=== PATIENT | female | born 1945 | race Caucasian/White ===

== ENCOUNTER 2020-12-02 07:49 | Outpatient (CLI) | payer MEDICARE, SELFPAY ==
--- NOTE | ~2020-12-02 | US_ITS ---
EXAMINATION: US venous doppler [facility] DATE: 12/02/2020 08:57 INDICATION: Lower limb pain and varicose veins TECHNIQUE: Grayscale ultrasound images without and with compression and Doppler ultrasound images of the bilateral lower extremity veins were obtained. COMPARISON: None. FINDINGS: The visualized portions of right common femoral vein, profunda (deep) femoral vein, femoral vein, pop liteal vein, posterior tibial veins, peroneal veins, gastrocnemius vein and greater saphenous vein ou tflow are patent. The visualized portions of left common femoral vein, profunda femoral vein, femoral vein, popliteal v ein, posterior tibial veins, peroneal veins, gastrocnemius vein and greater saphenous vein outflow ar e patent. In the anterolateral left thigh there is a nonspecific 2.2 x 0.8 x 2.5 cm hyperechoic lenti cular mass which appears centered within the superficial aspect of the musculature. No internal vascu lar flow evident within the mass on color Doppler. IMPRESSION: 1. No deep venous thrombosis in either lower limb. 2. Nonspecific 2.2 x 2.5 x 0.8 cm lenticular intramuscular mass at the anterolateral left thigh consi stent with neoplasm either benign such as lipoma, schwannoma or peripheral nerve sheath tumor or izabel gnant. Recommend pre and postcontrast MRI for further evaluation. Reviewed, dictated and finalized at location A. IATIVE NURSE IMPRESSION: 1. No deep venous thrombosis in either lower limb. 2. Nonspecific 2.2 x 2.5 x 0.8 cm lenticular intramuscular mass at the anterola teral left thigh consistent with neoplasm either benign such as lipoma, schwann basim or peripheral nerve sheath tumor or malignant. Recommend pre and postcontra st MRI for further evaluation.
== END 2020-12-02 07:50 | disposition home or self-care (01) ==
LOC: ANHIMG 07:56
DX: I83.813 Varicose veins of bilateral lower extremities with pain (principal); R22.42 Localized swelling, mass and lump, left lower limb
CPT/HCPCS: 93970

== ENCOUNTER → 2020-12-21 12:54 | Outpatient (CLI) | payer MEDICARE, SELFPAY ==
--- NOTE | ~2020-12-21 | MR_ITS ---
EXAMINATION: MR femur LT wo/w con DATE: 12/21/2020 14:22 INDICATION: Left thigh mass. TECHNIQUE: Magnetic resonance imaging (MRI) of the left thigh was performed without and with 12 mL Mu ltiHance intravenous contrast. Sequences included axial T1-weighted FSE, T1-weighted FS FSE, and T2-w eighted FS FSE, coronal and sagittal T1-weighted FSE and STIR FSE, and postcontrast axial, coronal, a nd sagittal T1-weighted FS FSE. COMPARISON: None. FINDINGS: Bone alignment is normal. No fracture. There is a 1.7 x 0.6 x 0.6 cm intramuscular lipoma i n the anterior distal thigh. There is a skin marker overlying this area. IMPRESSION: 1. 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 Reviewed, dictated and finalized at location A. K DRIVER FLATBED
[2020-12-21 13:32] LABS: Estimated Glomerular Filt Rate > 60
== END ==
PROVIDERS: Visit Provider Urology
DX: R22.42 Localized swelling, mass and lump, left lower limb (principal)
CPT/HCPCS: 73720; A9577

== ENCOUNTER 2021-02-14 10:14 | Outpatient (CLI) | payer MEDICARE, SELFPAY ==
--- NOTE | ~2021-02-14 | US_ITS ---
EXAMINATION: US venous doppler LE EXAM DATE: 02/14/2021 11:38 INDICATION: Varicose veins. TECHNIQUE: Multiple grayscale, color flow and Doppler images of the lower extremity venous systems bi laterally were obtained and reviewed. Saphenous venous mapping. The exam was reviewed on 02/14/2021. Co mparison is made to prior examination from 12/02/2020. FINDINGS: Right side: The right common femoral, femoral and profunda veins demonstrate normal color flow, respi ratory variation, augmentation and compressibility. Compressibility, color flow confirmed within the right popliteal, posterior tibial, peroneal, and greater saphenous veins. Right Standing Venous Mapping: reflux seconds duration; vein size. Greater saphenous origin: 1 seconds; 5 mm. Greater saphenous mid thigh:------ 1 seconds; 4 mm. Greater saphenous below knee:--- 5 seconds; 4 mm. Lesser saphenous proximally:------ 0 seconds; 3 mm. Lesser saphenous distally: 0 seconds; 2 mm. Left side: The left common femoral, femoral and profunda veins demonstrate normal color flow, respira tory variation, augmentation and compressibility. Compressibility, color flow confirmed within the l eft popliteal, posterior tibial, peroneal, and greater saphenous veins. Left Standing Venous Mapping: reflux seconds duration; vein size. Greater saphenous origin: 0 seconds; 5 mm. Greater saphenous mid thigh:------ 1 seconds; 3 mm. Greater saphenous below knee:--- 0 seconds; 3 mm. Lesser saphenous proximally:------ 3 seconds; 4 mm. Lesser saphenous distally: 0 seconds; 2 mm. IMPRESSION: Bilateral lower extremity venous reflux, vessel diameters as above. Reviewed, dictated and finalized at location B. IMPRESSION: Bilateral lower extremity venous reflux, vessel diameters as above .
== END 2021-02-14 10:15 | disposition home or self-care (01) ==
PROVIDERS: PCP Internal Medicine
DX: I83.813 Varicose veins of bilateral lower extremities with pain (principal)
CPT/HCPCS: 93970

== ENCOUNTER 2021-05-22 09:25 | Emergency (ER) | payer MEDICARE, SELFPAY ==
[2021-05-22 09:41] VITALS: BP 127/73; PULSE 118; RESP 18; TEMP 36.9; O2SAT 99
--- NOTE | 2021-05-22 09:46 | ED.ANIMALBIT ---
HPI - Animal Bite General Chief Complaint: Animal Bite Stated Complaint: Dog Bite Time Seen by Provider: 05/22/21 09:46 Source: patient and RN notes reviewed Mode of arrival: ambulatory Limitations: no limitations History of Present Illness HPI narrative: 75 yo female presents to the [facility] with concerns over swelling and inflammation to the left mid forearm. Patient states that on Saturday she was bit by her dog. States that she then had a televisit with her primary care provider at [facility] and was prescribed Augmentin. States that she is concerned because she only received 5 days of the antibiotic. States that she is having cataract surgery this week. Still having discomfort bruising and swelling to the area. States that she received her tetanus vaccine over the weekend at a pharmacy. Patient reports that she dropped pills as her dog was eating and went to pick them up and her dog bit her. Dog is up-to-date on vaccines. Related Data Home Medications Medication Instructions Recorded Confirmed alprazolam 0.5 mg tablet 0.5 mg PO TID 11/24/19 05/22/21 escitalopram oxalate 10 mg tablet 20 mg PO DAILY tablet 05/17/20 05/22/21 cholecalciferol (vitamin D3) 25 75 mcg PO DAILY cap 04/26/21 05/22/21 mcg (1,000 unit) capsule horse chestnut 300 mg capsule 300 mg PO DAILY 04/26/21 05/22/21 multivitamin 1 tablet PO DAILY 04/26/21 05/22/21 vitamins A,C,I-zoyc-rnehan 7,160 2 tablet PO BID tablet 04/26/21 05/22/21 unit-113 mg-100 unit tablet Allergies Allergy/AdvReac Type Severity Reaction Status Date / Time No Known Drug Allergies Allergy Other Verified 05/22/21 09:57 Review of Systems Review of Systems: All systems reviewed & are unremarkable except as noted in HPI and below Constitutional: Constitutional: Reports no additional constitutional complaints, Denies chills and Denies fever(s) Eyes: Eyes: Reports no additional eye complaints Cardiovascular: Cardiovascular: Reports no additional cardiovascular complaints Respiratory: Respiratory: Reports no additional respiratory complaints Musculoskeletal: Musculoskeletal: Reports no additional musculoskeletal complaints Integumentary/Breasts: Skin/Breast: Reports as per HPI, Denies pruritus, Denies erythema and Denies rash Comments: 2 puncture wounds to the left dorsal forearm Neurologic: Reports system reviewed and no additional complaints, except as documented, Denies headache(s), Denies focal weakness, Denies numbness and Denies weakness Psychiatric: Psychiatric: Reports no additional psychiatric complaints Allergic/Immunologic: Allergic/Immunologic: Reports no additional allergic/immunologic complaints [facility] Past Medical History Medical History (Updated 05/22/21 @ 10:03 by Isabela Mijares) Anxiety Osteopenia Thyroid disease Surgical History Surgical History H/O oophorectomy Hx of tonsillectomy Family History Family History Mother Family history of osteoporosis Family history of arthritis Family history of pancreatic cancer Sibling Hypertension Social History Social History Smoking status: Never smoker Second hand tobacco smoke exposure: No Alcohol intake: current 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 There is no relevant family history pertinent to the patient complaint. Exam Const: General: healthy appearing, no acute distress and alert Nutritional Appearance: well nourished Orientation/consciousness: patient oriented x3 Limitations: no limitations HENMT: Head: normal to inspection Eyes: Pupils: Equal, round and reactive pupils present Neck: Neck: normal visual inspection, no lymphadenopathy and no meningeal signs Chest: Kassi
== END 2021-05-22 10:06 | disposition home or self-care (01) ==
PROVIDERS: Emergency Provider Nurse Practitioner
DX: S51.832A Puncture wound without foreign body of left forearm, initial encounter (principal); W54.8XXA Other contact with dog, initial encounter; F41.9 Anxiety disorder, unspecified; M81.0 Age-related osteoporosis without current pathological fracture; E03.9 Hypothyroidism, unspecified
CPT/HCPCS: 99213; G0463

== ENCOUNTER 2022-12-26 09:00 | Outpatient (RCR) | payer MEDICARE, SELFPAY ==
--- NOTE | 2022-12-19 13:23 | STOPEVAL1 ---
Assessment and note entered by Arina Ruano, SYRUP MIXER HELPER Evaluation Information Assessment Status Evaluation Diagnosis Dysphonia Onset Approximately May 2022 ( 8 months ) Subjective Information The patient reports she has been diagnosed with Parkinson's disease. She stated that prior to that she had been working with someone on her stress and anxiety. She then went into a long detailed story about her cataract and eye issues, then explained about her varicose veins, and then something about how her hands contract, calling it something that starts with a 'd'. Therapist asked her twice about why she is here. She stated that she feels she talks fine but that occasionally, she feels she stutters, has a soft voice, and is occasionally drooling. After session, sister, who brought patient to session, reported that there have been occasions when patient speaks so softly that they cannot hear or understand her. She reported that on one occasion, sister asked patient to offer her food order at a drive-through (from the passenger side of the car), and patient responded with an abnormally soft voice, just above a whisper, although patient usually speaks at a more [id number] loudness. She also reported concerns with patient's swallowing, that she noticed that patient occasionally reports pills hanging up in the throat. Reported Pain Level Pain Score 0: Self Report Assessment ST Clinical Summary VOICE EVALUATION This patient was seen for a Voice Evaluation at the request of her physician. Patient reports she has recently been diagnosed with Parkinson's disease and reports a history of anxiety and decreased hearing acuity. She also reported having cataract surgery two years ago and blames that and COVID for her anxiety and the additional symptoms of Parkinson's disease. Today she reports that people do occasionally have difficulty hearing her when she speaks so she is aware of her decreased loudness, but she also reports she feels she stutters at times. Results of this voice evaluation find patient's overall speaking lo
--- NOTE | 2022-12-26 10:21 | OTOPEVAL1 ---
Assessment and note entered by Steven Benitez, ALETHA/Hallie, CHT Evaluation Information Assessment Status Evaluation Diagnosis Parkinson's Disease Subjective Information Patient was diagnosed with PD Oct 2022. She reports having symptoms for a while but just recently diagnosed. She was then prescribed carbidopa/levodopa 3 times/day. She states she noticed immediate improvement when she started the medications. She reports difficulties with writing - her sister has been having to do her bills; with being able to cut an apple or meat; picking up pills. Reports getting in and out of a car has also become more difficult. States she doesn't go grocery shopping by herself anymore because she gets anxious that she's going to drop something and this makes her tremor worse. Reported Pain Level Pain Score 0: Self Report Assessment OT Clinical Summary Laina Ruiz) presents to outpatient OT with dx of Parkinson's Disease. Skilled therapy indicated secondary to a decline in ADL function due to bradykinesias and hypokinesia. She will benefit from skilled treatment focused on targeting neuroplasticity via amplitude-based interventions to facilitate recalibration of kinesthetic and proprioceptive movement. Plan of Care Interventions Therapeutic Exercise,Neuro Re-education OT Services Indicated Yes Treatment Frequency and 2-3x/week for 4 weeks Duration These treatments will address the objective and functional deficits as defined above. The patient will be advanced safely and appropriately in order for the patient to progress towards his/her prior level of function. Additional exercises will be introduced and as well as a comprehensive home exercise program upon discharge, if needed, ?to ensure carryover of functional gains achieved in the clinic. This treatment plan has been reviewed and agreement upon by the patient.
--- NOTE | 2022-12-31 08:10 | PCSTNOTE ---
Cancelled this date as patient is wanting LSVT 4x weekly and this therapist is not certified for 4x weekly at this time.
--- NOTE | 2023-01-03 08:46 | OTOPDC ---
Assessment and note entered by Steven Benitez, ALETHA/Hallie, CHT Evaluation Information Assessment Status Discharge Assessment OT Clinical Summary Patient evaluated for OT on 12/25/22 and was recommended to be seen 2x/week for therapy. Patient's sister is looking for traditional LSVT treatment for 4 days/week and our clinic unfortunately does not provide the traditional LSVT protocol as we are not certified. The patient and her sister were provided with other clinics that have certified therapists to provide the protocol to better fit her needs. Discharging today. Plan of Care OT Services Indicated No
--- NOTE | 2023-01-07 15:06 | STOPDC ---
Assessment and note entered by Arina Ruano BUSINESS DEVELOPMENT RECRUITER Evaluation Information Assessment Status Discharge - Pt Not Presen Assessment ST Clinical Summary DISCHARGE SUMMARY Patient seen for Speech Therapy evaluation only on 12/19/22 for voice treatment following diagnosis of Parkinson's disease. Patient requested LSVT [facility] for four days weekly. Because we do not have certified clinicians for LSVT at this time, patient chose to find another clinic which could provide this program. Discharged January 03 at patient request. Plan of Care ST Services Indicated No
== END 2023-03-04 08:46 | disposition home or self-care (01) ==
LOC: ANHOT 09:00
PROVIDERS: Visit Provider Nurse Practitioner Gerontology
DX: G20 Parkinson's disease (principal); R49.0 Dysphonia
CPT/HCPCS: 92524; 97110; 97166

== ENCOUNTER 2023-07-18 13:14 | Emergency (ER) | payer MEDICARE, SELFPAY ==
[2023-07-18 13:24] VITALS: BP 119/70; PULSE 94; RESP 18; TEMP 36.9; O2SAT 99
[2023-07-18 13:34] VITALS: BP 119/70; PULSE 94; RESP 18; TEMP 36.9; O2SAT 99
--- NOTE | 2023-07-18 13:36 | ED.EXTPRO ---
HPI - Extremity Problem General Chief complaint: Extremity Problem,Nontraumatic Stated complaint: Left Arm Irritation History of Present Illness HPI Narrative: Pt is a 77 y/o female, PMHx of Parkinson's, presents to with right anterior biceps region of ecchymosis that she noticed while brushing her teeth today. she initially had no recollection of injury but now notes she recalls walking around the corner in her home to answer the phone, when she bumped into the wall abruptly. She did not lift her shirt to examine and has not looked at her arm until today. This injury occurred last week. She has no underlying bony tenderness but notes a knot at the center of the bruise and this caused her concern. She has no hx of DVT, PE or family history of clotting disorders. She does not smoke. She has no other complaints. Related Data Home Medications Medication Instructions Recorded Confirmed escitalopram oxalate 10 mg tablet 20 mg PO DAILY 05/17/20 07/18/23 (Lexapro) vitamins A,C,S-jxqu-ckfsra 2,148 2 tablet PO BID 04/26/21 07/18/23 mcg-113 mg-45 mg-17.4 mg tablet (PreserVision AREDS) zinc sulfate 50 mg zinc (220 mg) 50 mg PO DAILY 08/30/22 07/18/23 capsule (Orazinc) alprazolam 0.5 mg tablet (Xanax) 0.5 mg PO QPM PRN Anxiety 03/12/23 07/18/23 carbidopa 25 mg-levodopa 100 mg 1 tablet PO DAILY 03/12/23 07/18/23 tablet (Sinemet) cholecalciferol (vitamin D3) 25 50 mcg PO DAILY 03/12/23 07/18/23 mcg (1,000 unit) capsule memantine 10 mg tablet 10 mg PO BID 03/12/23 07/18/23 omeprazole 20 mg capsule,delayed 40 mg PO DAILY 03/12/23 07/18/23 release sertraline 50 mg tablet 50 mg PO DAILY 07/18/23 07/18/23 Allergies Allergy/AdvReac Type Severity Reaction Status Date / Time No Known Drug Allergies Allergy Other Verified 07/18/23 13:31 Review of Systems Integumentary/Breasts: Skin/Breast: Reports as per [facility] Past Medical History Medical History Anxiety B12 deficiency Dietary counseling and surveillance Hypothyroidism (acquired) Iron deficiency Osteopenia Osteoporosis Parkinsons disease Thyroid disease Vitamin D deficiency Surgical History Surgical History H/O oophorectomy Hx of tonsillectomy Family History Family History Mother Family history of osteoporosis Family history of arthritis Family history of pancreatic cancer Sibling Hypertension Social History Social History Smoking status: Never smoker Second hand tobacco smoke exposure: No Alcohol intake: former Substance use: never Living arrangements: alone Occupation/Education: retired 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 Exam Const: General: healthy appearing, no acute distress and alert Nutritional Appearance: well nourished Orientation/consciousness: patient oriented x3 Limitations: no limitations HENMT: Head: normal to inspection Ears: TM's normal bilaterally Face and sinus: normal facial exam Mouth: Yes Normal oral and palatal mucosa present Teeth and gingiva: dentition normal Throat: posterior oropharynx normal and uvula midline Eyes: Conjunctivae: conjunctivae normal Pupils: Equal, round and reactive pupils present EOM: EOMs intact bilaterally Neck: Neck: normal visual inspection, no lymphadenopathy and no meningeal signs Resp: Effort & Inspection: normal respiratory effort Auscultation: clear to auscultation bilaterally Cardio: Rate: regular rate Rhythm: regular rhythm Skin: General skin exam: normal color Rashes: no rashes Other: Pt has a 4 cm by 5 cm area of ecchymosis to the right anterior biceps region that is purple brown at center and yellow at the edges of the margin of ecchymosis. There is a 1 cm round palpable firm hematoma at the
== END 2023-07-18 13:46 | disposition home or self-care (01) ==
PROVIDERS: Emergency Provider Nurse Practitioner Family; PCP Urology
DX: S40.022A Contusion of left upper arm, initial encounter (principal); T14.90XA Injury, unspecified, initial encounter; F41.9 Anxiety disorder, unspecified; E03.9 Hypothyroidism, unspecified; G20.A1 Parkinson's disease without dyskinesia, without mention of fluctuations; E55.9 Vitamin D deficiency, unspecified
CPT/HCPCS: 99211; G0463

== ENCOUNTER 2023-10-01 12:04 | Emergency (ER) | payer MEDICARE, SELFPAY ==
[2023-10-01 12:14] VITALS: BP 147/78; PULSE 94; RESP 16; TEMP 37.3; O2SAT 100
[2023-10-01 12:17] VITALS: BP 147/78; PULSE 94; RESP 16; TEMP 37.3; O2SAT 100
--- NOTE | 2023-10-01 12:24 | ED.URI ---
HPI - URI/Sore Throat General Chief Complaint: Upper Respiratory Infection Stated Complaint: Chills/Sinus Time Seen by Provider: 10/01/23 12:24 Source: patient and RN notes reviewed Mode of arrival: ambulatory Limitations: no limitations History of Present Illness HPI Narrative: 78-year-old female with history of Parkinson's disease presented for complaint of cough, nasal congestion drainage, nausea, and fever/ chills. Onset 2 days. It states she was exposed to COVID. She denies shortness of breath, wheezing, vomiting, diarrhea. She is not taking anything for symptoms. MD elicited complaint: cough Related Data Home Medications Medication Instructions Recorded Confirmed escitalopram oxalate 10 mg tablet 20 mg PO DAILY 05/17/20 10/01/23 (Lexapro) vitamins A,C,N-uphy-skmdku 2,148 2 tablet PO BID 04/26/21 10/01/23 mcg-113 mg-45 mg-17.4 mg tablet (PreserVision AREDS) zinc sulfate 50 mg zinc (220 mg) 50 mg PO DAILY 08/30/22 10/01/23 capsule (Orazinc) carbidopa 25 mg-levodopa 100 mg 1 tablet PO DAILY 03/12/23 10/01/23 tablet (Sinemet) cholecalciferol (vitamin D3) 25 50 mcg PO DAILY 03/12/23 10/01/23 mcg (1,000 unit) capsule memantine 10 mg tablet 10 mg PO BID 03/12/23 10/01/23 omeprazole 20 mg capsule,delayed 40 mg PO DAILY 03/12/23 10/01/23 release donepezil 10 mg tablet 10 mg DIRECTED 10/01/23 10/01/23 donepezil 5 mg tablet 5 mg DIRECTED 10/01/23 10/01/23 sertraline 50 mg tablet 50 mg DIRECTED 10/01/23 10/01/23 Allergies Allergy/AdvReac Type Severity Reaction Status Date / Time No Known Drug Allergies Allergy Other Verified 09/10/23 11:02 Review of Systems Review of Systems: CONSTITUTIONAL: Endorses malaise, chills, sweats, fever EYES: Denies visual changes, redness, or discharge ENT: Reports rhinorrhea, congestion, denies sinus pain, otalgia, sore throat CARDIOVASCULAR: Denies chest pain, palpitations, edema RESPIRATORY: Reports cough, post nasal drainage. Denies dyspnea GASTROINTESTINAL: Denies abdominal pain, nausea, vomiting, diarrhea SKIN: Denies rash or itching MUSCULOSKELETAL: Endorses myalgia NEUROLOGIC: Denies headache PMFSH Past Medical History Medical History Anxiety B12 deficiency Dietary counseling and surveillance Hypothyroidism (acquired) Iron deficiency Osteopenia Osteoporosis Parkinsons disease Thyroid disease Vitamin D deficiency Surgical History Surgical History H/O oophorectomy Hx of tonsillectomy Family History Family History Mother Family history of osteoporosis Family history of arthritis Family history of pancreatic cancer Sibling Hypertension Social History Social History Smoking status: Never smoker Second hand tobacco smoke exposure: No Alcohol intake: former Substance use: never Living arrangements: alone Occupation/Education: retired 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 HEAD: Normocephalic EYES: PERRLA, conjunctivae clear ENT: Mucous membranes moist. TMs pearly knutson with dull light reflex bilaterally; no tragal tenderness. Oropharynx not erythematous without lesions or exudate, no drooling, no hoarseness, no trismus, uvula midline. NECK: Supple. No lymphadenopathy CHEST: Clear to auscultation, breath sounds equal. No wheezing, rhonchi, rales, or stridor. No respiratory distress, speaks in full sentences. HEART: Regular rate and rhythm. No murmur heard. SKIN: Warm, dry, no rash. NEURO: Alert and oriented x3. PSYCH: Normal mood and affect Course Course Emergency Course: Patient is aware of diagnosis, understands and agrees to treatment plan. Anticipatory guidance given. Patient agre
== END 2023-10-01 12:45 | disposition home or self-care (01) ==
PROVIDERS: Emergency Provider Nurse Practitioner Family
DX: U07.1 COVID-19 (principal); E03.9 Hypothyroidism, unspecified; G20.A1 Parkinson's disease without dyskinesia, without mention of fluctuations; Z79.899 Other long term (current) drug therapy
CPT/HCPCS: 87426; 87804; 99213; C9803; G0463

== ENCOUNTER 2025-10-08 05:25 | Emergency (ER) | payer MEDICARE, SELFPAY ==
--- NOTE | ~2025-10-08 | XR_ITS ---
Examination: XR clavicle LT Clinical History: pain after fall Comparison: None Technique: 2 views left clavicle Findings/impression: 1. No fracture. Reviewed, dictated and finalized at location R. STANT CASINO SHIFT MANAGER
--- NOTE | ~2025-10-08 | XR_ITS ---
Examination: XR shoulder RT min 2V, XR humerus RT, XR elbow RT 2V Clinical History: fall, pain? Comparison: None Technique: 3 views right shoulder, 2 views right humerus, 2 views right elbow Findings/impression: Right shoulder: 1. No fracture or dislocation right shoulder. Right humerus: 1. No fracture. Right elbow: 1. No fracture or dislocation right elbow on 2 view series. Reviewed, dictated and finalized at location R. ORK ADMIN
--- NOTE | ~2025-10-08 | CT_ITS ---
CT HEAD NON-CONTRAST CT C-SPINE Clinical History: fall Comparison: None Technique: Unenhanced axial images skull base to vertex. Coronal, sagittal reformats. Axial images thoracic inlet to skull base. Sagittal and coronal reformats. CT images acquired with automatic exposure control for dose reduction DLP: 1362 mGy-cm Findings: Head: Mild global atrophy. Chronic white matter microvascular ischemic changes. Sulci, ventricles: Unremarkable. No intracerebral hemorrhage. No evidence acute territorial infarct. No mass effect, midline shift, intra-/extra-axial fluid collection. Bony calvarium intact. Visualized paranasal sinuses: Clear. Mastoid air cells: Clear. C-spine: No acute fracture or listhesis. Levocurvature. Mild degenerative changes. Disc spaces maintained. Prevertebral soft tissues within normal limits. Visualized lung apices: Clear. Visualized thyroid: Unremarkable. No enlarged cervical nodes. IMPRESSION: HEAD: 1. No acute intracranial findings. C-SPINE: 1. No acute fracture. Reviewed, dictated and finalized at location R. LIFTER IMPRESSION: HEAD: 1. No acute intracranial findings. C-SPINE: 1. No acute fracture.
[2025-10-08 05:27] VITALS: BP 156/94; PULSE 111; RESP 17; TEMP 36.7; O2SAT 100
--- NOTE | 2025-10-08 05:54 | ED.FALL ---
HPI - Fall General Chief Complaint: Fall Stated Complaint: fall Time Seen by Provider: 10/08/25 05:47 Source: patient, family and RN notes reviewed Mode of arrival: EMS Limitations: dementia History of Present Illness HPI Narrative: Patient presents after an unwitnessed ground level fall in which she presumably struck her head. She resides at [facility] and it was reported that she is not on anticoagulation. She has a history of Parkinson's as well as dementia and is alert oriented x1 which is her baseline. Patient had been complaining of upper neck pain and EMS applied a C-spine collar. She has also been complaining of right arm pain although exact location unclear. History is limited due to patient's dementia but she cannot fully cooperate with answering questions. She cannot indicate where it hurts on her arm. Related Data Home Medications ?Medication ?Instructions ?Recorded ?Confirmed ?Last Taken ?Type escitalopram oxalate 10 mg tablet 20 mg PO DAILY 05/17/20 05/06/24 Unknown History (Lexapro) vitamins A,C,W-mmhr-rkgump 2,148 2 tablet PO BID 04/26/21 05/06/24 Unknown History mcg-113 mg-45 mg-17.4 mg tablet (PreserVision AREDS) zinc sulfate 50 mg zinc (220 mg) 50 mg PO DAILY 08/30/22 05/06/24 Unknown History capsule (Orazinc) carbidopa 25 mg-levodopa 100 mg 1 tablet PO DAILY 03/12/23 05/06/24 Unknown History tablet (Sinemet) cholecalciferol (vitamin D3) 25 50 mcg PO DAILY 03/12/23 05/06/24 Unknown History mcg (1,000 unit) capsule memantine 10 mg tablet 10 mg PO BID 03/12/23 05/06/24 Unknown History donepezil 10 mg tablet 10 mg DIRECTED 10/01/23 05/06/24 Unknown History donepezil 5 mg tablet 5 mg DIRECTED 10/01/23 05/06/24 Unknown History duloxetine 20 mg capsule,delayed mg PO DAILY 05/06/24 05/06/24 Unknown History release minoxidil 2.5 mg tablet mg PO DAILY 05/06/24 05/06/24 Unknown History omeprazole 40 mg capsule,delayed mg PO DAILY 05/06/24 05/06/24 Unknown History release oxybutynin chloride 5 mg mg PO 05/06/24 05/06/24 Unknown History tablet,extended release 24 hr Allergies Allergy/AdvReac Type Severity Reaction Status Date / Time No Known Drug Allergies Allergy Other Verified 10/08/25 05:42 [facility] Past Medical History Medical History Dementia Parkinsons disease Vitamin D deficiency Iron deficiency Hypothyroidism (acquired) Dietary counseling and surveillance B12 deficiency Osteoporosis Thyroid disease Osteopenia Anxiety Surgical History Surgical History H/O oophorectomy Hx of tonsillectomy Family History Family History Mother Family history of osteoporosis Family history of arthritis Family history of pancreatic cancer Sibling Hypertension Social History Social History Social History: Smoking status: Never smoker Second hand tobacco smoke exposure: No Alcohol intake: former Substance use: never Living arrangements: alone Additional living arrangements comments: [facility] Living Occupation/Education: retired 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 HEAD: Normocephalic, atraumatic. EYES: Non injected, non icteric ENT: Nares clear, no rhinorrhea or epistaxis. Gross auditory acuity intact. NECK: C collar in place. No TTP of the areas of the neck that are able to be palpated under this. No TTP of left clavicle. CHEST: Speaking in full sentences. No respiratory distress. HEART: Tachycardic rate and rhythm. . ABDOMEN: Soft, nondistended. No rigidity or guarding. Not peritoneal EXTREMITIES: No upper extremity edema. Initially holds right arm bend at the elbow across her chest. No TTP of wrist , able to demonstrate flexion and extension. No TTP of right elbow and does demonstrate some flexion/extension. No TTP of right shoulder though does not show ROM. No obvious bony deformity. SKIN: Warm, dry, no rash. NEURO: No focal deficits. Alert but not oriented.Intermittently Following commands. Normal speech without aphasia or dysarthria. PSYCH: Congruent mood and affect. Appears anxious and at times mildly agitated but calm. Course Vital Signs Vital signs: Vital Signs Temperature 98.0 F 10/08/25 05:27 Pulse Rate 111 H 10/08/25 05:27 Respiratory Rate 17 10/08/25 05:27 Blood Pressure 156/94 H 10/08/25 05:27 Pulse Oximetry 100 10/08/25 05:27 Oxygen Delivery Room Air 10/08/25 05:27 Temperature 98.0 F 10/08/25 05:27 Pulse Rate 87 10/08/25 08:49 Respiratory Rate 14 10/08/25 08:49 Blood Pressure 111/65 10/08/25 08:49 Pulse Oximetry 97 10/08/25 08:49 Oxygen Delivery Room Air 10/08/25 05:27 MDM MDM Narrative Medical decision making narrative: Patient presents after a ground level fall that was unwitnessed in which she presumably struck head. Patient had been complaining of neck pain as well as right arm pain. History of Parkinson's and dementia which limits her ability to give a history a she is alert oriented x1 at baseline which is she presents currently. In the emergency department she is afebrile with vital signs notable for hypertension as well as mild tachycardia. Per review of EMR medication list, patient is not on anticoagulation. Initially CT brain, C-spine, and imaging of the right upper extremity had been ordered. Upon reassessment, cervical collar is removed and patient has difficulty fully participating in physical exam to demonstrate full range of motion however she is able to show some rotational/rrgp-tj-[id number] movement of her neck as well as to a lesser degree has some flashes and extension. She has no tenderness to palpation of the cervical spine. She is complaining of pain of her left neck/at the clavicle. NO obvious deformity but will proceed with Xray of this as well. Discussed with the family the recommendation for offering PRN meds over the next several days as she might not be able to voice her needs/pain. They verifies understanding and reports that the [facility] facility where she resides does assist with medication administration. Vital signs have normalized. Stable for discharge. Advised follow up with PCP. Differential Diagnosis Differential Diagnosis: Fracture, dislocation, bony contusion, intracranial hemorrhage Imaging Data Radiologist's impression: ITS Impressions Cervical Spine CT 10/08/25 07:02 IMPRESSION: HEAD: 1. No acute intracranial findings. C-SPINE: 1. No acute fracture. Head CT 10/08/25 07:02 IMPRESSION: HEAD: 1. No acute intracranial findings. C-SPINE: 1. No acute fracture. CT head stat rad: Generalized cerebral volume loss and chronic, small-vessel ischemic changes in the white matter. No acute intracranial edema, hemorrhage or abnormal mass effect. No extra-axial collection. No fracture. CT C spine w/o contrast stat rad: No acute osseous pathology. Multilevel cervical spondylopathy. Impressions Cervical Spine CT 10/08/25 07:02 IMPRESSION: HEAD: 1. No acute intracranial findings. C-SPINE: 1. No acute fracture. Head CT 10/08/25 07:02 IMPRESSION: HEAD: 1. No acute intracranial findings. C-SPINE: 1. No acute fracture. Findings/impression: Right shoulder: 1. No fracture or dislocation right shoulder. Right humerus: 1. No fracture. Right elbow: 1. No fracture or dislocation right elbow on 2 view series. Findings/impression: 1. No fracture. Discharge Plan Discharge Clinical Impression: Fall, Neck pain, Other specified spondylopathies, cervical region, Arm pain, right, Pain of left clavicle Patient Disposition: NH Group Home/Asst Living Condition: Stable Instructions: Antibiotic Form, Cervical Strain (DC), Fall Prevention for Older Adults (ED), Arm Pain (ED), Acute Neck Pain (ED) Additional Instructions: As we discussed, no broken bones or bleeding in the brain. She will likely continue to be sore/achy over the next several days after the fall so offer medications as needed (PRN). Acetaminophen/Tylenol (maximum 3000 mg per day) is safe to take with NSAIDs (ibuprofen/Motrin) for pain relief. Follow-up with your primary care physician. Return to the emergency department with any new or worsening symptoms. Patient Language: German Prescriptions: New acetaminophen 650 mg tablet extended release 650 mg PO Q8H PRN (Reason: pain) Qty: 30 0RF ibuprofen 600 mg tablet 600 mg PO TID PRN (Reason: pain) Qty: 30 0RF No Action donepezil 5 mg tablet 5 mg DIRECTED donepezil 10 mg tablet 10 mg DIRECTED zinc sulfate [Orazinc] 50 mg zinc (220 mg) capsule 50 mg PO DAILY escitalopram oxalate [Lexapro] 10 mg tablet 20 mg PO DAILY PreserVision AREDS 7,160 unit- 113 mg-100 unit tablet 2 tablet PO BID Rx Instructions: administer with AM and PM meals cholecalciferol (vitamin D3) 25 mcg (1,000 unit) capsule 50 mcg PO DAILY carbidopa-levodopa [Sinemet] 25-100 mg tablet 1 tablet PO DAILY memantine 10 mg tablet 10 mg PO BID duloxetine 20 mg capsule,delayed release(DR/EC) PO DAILY omeprazole 40 mg capsule,delayed release(DR/EC) PO DAILY minoxidil 2.5 mg tablet PO DAILY oxybutynin chloride 5 mg tablet extended release 24hr PO levothyroxine [Synthroid] 75 mcg tablet See Rx Instructions .ROUTE .COMPLEX Qty: 78 0RF Dose Instruction: TAKE ONE TABLET BY MOUTH 6 DAYS A WEEK Rx Instructions: TAKE ONE TABLET BY MOUTH 6 DAYS A WEEK Follow-up/Referrals: Dr Elaina Gomes [Other] Referral Note: patient's listed PCP PHYSICIAN,EXECUTIVE PRODUCER PROMOS [Non-Staff, Internal Medicine] Stand Alone Forms: Fpc Discharge Time of Disposition: 07:53
[2025-10-08] MEDS: ACETAMINOPHEN 325 MG TABLET 650 MG PO (06:55)
[2025-10-08 07:40] VITALS: BP 130/82; PULSE 79; RESP 16; O2SAT 97
--- OUTSIDE RECORDS SUMMARY | 2025-10-08 07:53 | XMS_ITS | Encounter Summary ---
Author Organization [facility] Address [address] [place] [address] Care Team Providers Care Orbitread Operator Name Role Phone Elaina Gomes MD Primary Care Provid er Encounter Details Date Type Department Care Team (Late st Contact Info) Description 06/13/[address] 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
--- OUTSIDE RECORDS SUMMARY | 2025-10-08 07:53 | XMS_ITS | Encounter Summary ---
Author Organization [facility] Address [address] [place] [address] Care Team Providers Care Software Installation Engineer Name Role Phone Elaina Gomes MD Primary Care Provid er Encounter Details Date Type Department Care Team (Late st Contact Info) Description 09/24/2008 Outpatient Historical [facility] Jas Griffith MD [address] [place] [address] Palpitations Social History Tobacco Use Types Packs/Day Years Used Date Smoking Tobacco: Never Alcohol Use Standard Drinks/Week Comments No 0 (1 standard drink = 0.6 oz pur e alcohol) Comments No Sex and Gender Information Value Date Recorded Sex Assigned at Not on file 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 [address] [email or web address] Patient: Laina Christie MRN: Study ID: ADULT STRESS ECH Gender: F : 1945 Age: 63 years Race: 1 Room: Bed: Height: Study Date: September 24, 2008 Patient status: Outpatient Weight: Access. #: [id number] POC: Ordering: Robert Attending MD: Robert Admitting MD: Robert Study Conclusions: SUMMARY - Stress results : Duration of exercise was 46 min. Target heart rate was achieved. There was no chest pain during stress. - Baseline : Estimated left ventricular ejection fraction was in the range of 55 % to 65 %. - Echo image interpretation : There was no echocardiographic evidence for stress-induced ischemia. IMPRESSIONS - Normal study after maximal exercise without reproduction of symptoms. History and indications - Detection of coronary artery disease. HISTORY - The patient is a 63 year old female. - Other symptoms: palpitations. REST ECG - Normal baseline ECG. Treadmill exercise testing was performed, using the Alejo protocol. Stress and rest echocardiographic evaluation was performed from multiple acoustic windows for evaluation of ventricular function. Stress results Alejo protocol Baseline HR bpm: 96 SBP mmH DBP mmH Symptoms: -- ST change: -- Rhythm/conduct: -- Peak HR bpm: 160 SBP mmH DBP mmH Symptoms: dyspnea, fatigue ST change: none Rhythm/conduct: occasional PVC's STRESS TEST DATA - No medications or fluids given. STRESS RESULTS - Duration of exercise was 46 min. - The patient exercised to protocol stage 2. - Maximal heart rate during stress was 160 bpm ( 101 % of maximal predicted heart rate). - The heart rate response to stress was normal. - There was normal resting blood pressure with an appropriate response to stress. - The rate-pressure product for the peak heart rate and blood pressure was [address]7. - There was no chest pain during stress. - The stress test was terminated due to achievement of target heart rate, dyspnea, and fatigue. - Arrhythmia during stress: isolated premature ventricular beats and pairs of premature ventricular beats. Imaging data IMAGE PROPERTIES - The image quality was excellent. STRESS 2D ECHOCARDIOGRAPHIC RESULTS Baseline: - There was no diagnostic evidence for left ventricular regional wall motion abnormalities at baseline. - Left ventricular size was normal. - Overall left ventricular systolic function was normal. - Estimated left ventricular ejection fraction was in the range of 55 % to 65 %. Peak stress: - There was no diagnostic evidence for left ventricular regional wall motion abnormalities at peak stress. - There was an appropriate reduction in left ventricular size. - There was an appropriate augmentation in LV function. ECHO IMPRESSIONS - There was no echocardiographic evidence for stress-induced ischemia. Prepared and Electronically Authenticated Gunnar Harman MD Confirmed September 24, 2008 11:17:08 Procedure Note Provider, Historical - 09/24/2008 [facility] [address] [place] [address] [email or web address] Patient: Laina Christie MRN: Study ID: ADULT STRESS ECH Gender: F : 1945 Age: 63 years Race: 1 Room: Bed: Height: Study Date: September 24, 2008 Patient status: Outpatient Weight: Access. #: [id number] POC: Ordering: Robert Attending MD: Robert Admitting MD: Robert Study Conclusions: SUMMARY - Stress results : Duration of exercise was 46 min. Target heart ratewas achieved. There was no chest pain during stress. - Baseline : Estimated left ventricular ejection fraction was in therange of 55 % to 65 %. - Echo image interpretation : There was no echocardiographic evidencefor stress-induced ischemia. IMPRESSIONS - Normal study after maximal exercise without reproduction of symptoms. History and indications - Detection of coronary artery disease. HISTORY - The patient is a 63 year old female. - Other symptoms: palpitations. REST ECG - Normal baseline ECG. Treadmill exercise testing was performed, using the Alejo protocol.Stress and rest echocardiographic evaluation was performed from multipleacoustic windows for evaluation of ventricular function. Stress results Alejo protocol Baseline HR bpm: 96 SBP mmH DBP mmH Symptoms: -- ST change: -- Rhythm/conduct: -- Peak HR bpm: 160 SBP mmH DBP mmH Symptoms: dyspnea, fatigue ST change: none Rhythm/conduct: occasional PVC's STRESS TEST DATA - No medications or fluids given. STRESS RESULTS - Duration of exercise was 46 min. - The patient exercised to protocol stage 2. - Maximal heart rate during stress was 160 bpm ( 101 % of maximal predicted heart rate). - The heart rate response to stress was normal. - There was normal resting blood pressure with an appropriate responseto stress. - The rate-pressure product for the peak heart rate and blood pressurewas 87225. - There was no chest pain during stress. - The stress test was terminated due to achievement of target heartrate, dyspnea, and fatigue. - Arrhythmia during stress: isolated premature ventricular beats andpairs of premature ventricular beats. Imaging data IMAGE PROPERTIES - The image quality was excellent. STRESS 2D ECHOCARDIOGRAPHIC RESULTS Baseline: - There was no diagnostic evidence for left ventricular regional wall motion abnormalities at baseline. - Left ventricular size was normal. - Overall left ventricular systolic function was normal. - Estimated left ventricular ejection fraction was in the range of 55 %to 65 %. Peak stress: - There was no diagnostic evidence for left ventricular regional wall motion abnormalities at peak stress. - There was an appropriate reduction in left ventricular size. - There was an appropriate augmentation in LV function. ECHO IMPRESSIONS - There was no echocardiographic evidence for stress-induced ischemia. Prepared and Electronically Authenticated Gunnar Harman MD Confirmed September 24, 2008 11:17:08 us Jas Griffith MD US ORDERABLES Final Result Performing Organization Address City/State/[facility] Co de Phone Number INTERFACE SYSTEM Refer to clinic/hospital department documented in this encounter Visit Diagnoses Diagnosis Palpitations documented in this encounter Additional Health Concerns Infection Onset Date Last Indicated Resolved Time R/O COVID-19 07/31/2024 07/31/2024 07/31/2024 4:18 PM CDT documented as of this encounter Care Teams Software Installation Engineer Relationship Specialty Start Date End Date Elaina Gomes MD PCP - General Internal Medicine 06/25/14 documented as of this encounter
--- OUTSIDE RECORDS SUMMARY | 2025-10-08 07:53 | XMS_ITS | Clinical Summary ---
Author Organization [facility] Address [address] [place] [address] Care Team Providers Care Fish Peddler Name Role Phone Elaina Gomes MD Primary Care Provid er Manuel Hyman MD Unavailable [phone] Allergies No known active allergies Medications escitalopram (LEXAPRO) 20 mg tablet 8 Active SYNTHROID 50 mcg tablet TK 1 T PO 5 DAYS A WEEK AND THEN 1 AND 1/2 TS FOR 2 DAYS A WEEK 5 8 Active spironolactone (ALDACTONE) 100 mg tablet 1 8 Active oxybutynin (DITROPAN) 5 mg tablet 8 Active ALPRAZolam (XANAX) 0.5 mg tablet Active ferrous sulfate 325 mg (65 mg of elemental iron) tablet 7 Active aspirin 81 mg enteric coated tablet Take 1 tablet (81 mg total) by mouth daily Active cholecalciferol (VITAMIN D-3) 2000 unit tablet Act oziel horse chestnut 300 mg capsule Take 300 mg by mouth Active ketorolac (ACULAR) 0.5 % ophthalmic solution 1 Active ofloxacin (OCUFLOX) 0.3 % ophthalmic solution 1 Active prednisoLONE acetate (PRED FORTE) 1 % ophthalmic suspension 1 Active atorvastatin (LIPITOR) 40 mg tablet Take 1 tablet (40 mg total) by mouth daily Active DULoxetine DR (CYMBALTA) 30 mg capsule 2 Active omeprazole (PriLOSEC) 20 mg capsule Take 1 capsule (20 mg total) by mouth daily as needed Active zinc gluconate 50 mg tablet Take 1 tablet (50 mg total) by mouth daily Active minoxidiL (LONITEN) 2.5 mg tablet 4 Active vitamins A,C,Y-xwzl-trliv r (PreserVision AREDS) 4,296 mcg-226 mg-90 mg capsule as directed Orally Active DULoxetine DR (CYMBALTA) 20 mg capsule 4 Active Synthroid 75 mcg tablet 4 Active donepeziL (ARICEPT) 10 mg tabletIndication s:Dementia without behavioral disturbance (HCC) Take 1 tablet (10 mg total) by mouth nightly 30 tablet 5 4 Active Additional Information Patient not taking.Reported on 06/02/2025 cephalexin (KEFLEX) 500 mg capsule 4 Active oxyBUTYnin XL (DITROPAN-XL) 5 mg 24 hr tablet 4 Active carbidopa-levodo pa (SINEMET) 25-100 mg per tabletIndication s:Parkinsonism Three times daily at 8am, 12 noon and 5pm 90 tablet 5 5 Active entacapone (COMTAN) 200 mg tabletIndication s:Idiopathic Parkinsonism Take 1 tablet (200 mg total) by mouth 3 (three) times a day Please give with each dose of carbidopa/levod opa 90 tablet 5 5 11/29/19 26 Active QUEtiapine (SEROquel) 25 mg tablet Take 0.5 tablets (12.5 mg total) by mouth 2 (two) times a day as needed (agitation) 30 tablet 5 5 Active Nuplazid 34 mg TAKE 1 CAPSULE BY MOUTH EVERY DAY 30 capsule 5 5 Active memantine (NAMENDA) 10 mg tablet TAKE ONE TABLET BY MOUTH TWICE DAILY 60 tablet 1 5 Active Active Problems Problem Noted Date Diagnosed Date Abnormal involuntary movement 06/04/2025 Neuropathy 03/16/2024 Chronic constipation 05/28/2023 Dementia without behavioral disturbance 05/22/20 23 Parkinson's disease 11/14/2022 Memory disturbance 11/14/2022 Hyper reflexia 11/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 She states that the reticular veins to the right foot and ankle have worsened over the past year. Denies any worsening overall of her symptoms. She is not utilized her compression stockings as they have been really difficult to get on because the compression gradient is difficult for her to put the stockings on. Will place Tubigrip to the legs today and will give a prescription for a lesser compression gradient stocking to help with her ability to put the stockings on. Plan: Return as needed. Assessment & Plan (05/05/2021 11:36 AM CDT): Impression: Patient with mild varicosities of both lower extremities with associated edema and occasional tenderness. She also has scattered reticular and spider veins. Patient has history of sclerotherapy in the past. She is not utilize any type of compression therapy on a consistent basis. Plan: Recommended further evaluation with lower extremity venous reflux studies and follow-up in 4-6 weeks for re- evaluation and discussion of test results.Recommend ongoing formal compression regimen consisting of medical grade knee-high compression stockings 20 30 mm mercury in strength with leg elevation p.r.n.. Venous reflux 03/06/2021 Lipoma of thigh 01/19/2021 Difficulty swallowing pills 10/09/2016 Pure hypercholesterolemia 08/21/2016 Abnormal mammogram 01/24/2016 Overview (04/26/2021): Overview: Left calc. BIRADS 4. 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 Overview (01/18/2017): THYROTOX NOS NO CRISIS Hypothyroidism 02/27/2014 Overview (01/17/2017): HYPOTHYROIDISM NOS Obesity, diabetes, and hypertension syndrome Overview (01/17/2017): DYSMETABOLIC SYNDROME X Disorder of bone and cartilage 02/27/2014 Overview (01/17/2017): BONE & CARTILAGE DIS NOS Renal cysts, acquired, bilateral 05/13/2013 Overview (04/26/2021): Overview: US 11/10/11 - 4.3x3.4x4.2 R renal cyst US 04/30/13 - 4.5cm R renal cyst US 11/09/13 - 4.5cm benign R renal cyst (no change from 2012) Allergic rhinitis due to other allergen 09/12/20 04 Gastroesophageal reflux disease 06/12/2004 Generalized anxiety disorder 04/26/2004 Palpitations 04/26/2004 Encounters Date Type Department Care Team Description 10/06/2025 Telephone [facility] [address] [place] [phone] Ariella Rodriguez NP Lab Results/ Lab Error (Ammonia) 10/04/2025 11:51 AM OCEANOGRAPHER ASSISTANT - 10/04/2025 11:59 PM OCEANOGRAPHER ASSISTANT Hospital Encounter [address] [phone] Discharge Disposition: Discharge to home or self care 08/27/2025 Orders Only [facility] Medical [facility] Neurology [address] [place] [phone] ProviderPaul MD 07/30/2025 3:46 PM CDT - 07/30/2025 11:59 PM CDT Hospital Encounter [address] [phone] Discharge Disposition: Discharge to home or self care 07/29/2025 Telephone [facility] [address] [place] [phone] Ariella Rodriguez NP Psychiatry and labs orders (Orders faxed ) 07/29/2025 Telephone [facility] [address] [place] [phone] Ariella Rodriguez NP Lab Work (Labs) 07/28/2025 Telephone [facility] [address] [place] [phone] Ariella Rodriguez NP Labs Only (Lab order needed ); Advice Only (Advice for the nursing facility ) 07/27/2025 Telephone [facility] [address] [place] [address] Ariella Rodriguez NP RESIDENT BEHAVIORAL (Resident behavioral ) from Last 3 Months Immunizations Immunization Administration Dates Next Due Influenza, Quadrivalent, Hig h Dose, Preservative Free, Intrr 06/23/2020 Influenza, Trivalent, High D ose, Split, Preservative Free, Intramuscular 07/24/2019,07/16/2018,07/27/2015 Influenza, Trivalent, IM (MDV) ,06/23/2020,07/31/2014,08/04,10/07/2012,08/18/2012,08/02/2011 ,08/03/2010,07/18/2009 Pfizer SARS-CoV-2 Monovalent Vaccination (12+ Yrs) PURPLE 12/11/2020,11/18/2020 Pneumococcal Polysaccharide PPV23 07/17/2018 Surgical History Surgery Date Site/Laterality Comments CATARACT EXTRACTION Medical History Medical History Date Comments Hx Other Medical retinal detachm ent s/p laser Osteoarthritis Osteoarthritis Gastroesophageal reflux disease GERD Osteoporosis Osteoporosis Hx Other Medical left ovary juan sima Family History Medical History Relation Name Comments Osteoporosis Mother Family history of osteoporosis - (Added by TW Conv) Hypertension Other 1 Family history of Hypertension; Thyroid disease Other 2 Family histo ry of Thyroid disorder; Other Other 3 No family histo ry of Diabetes mellitus; Other Other 4 No family histo ry of Osteoporosis; Osteoporosis Other 5 Family history of osteoporosis - (Added by TW Conv) Relation Name Status Comments Mother Other 1 Other 2 Other 3 Other 4 Other 5 Social History Tobacco Use Types Packs/Day Years Used Date Smoking Tobacco: Never Tobacco Cessation:Counseling Given: Not Answered Alcohol Use Standard Drinks/Week Comments No 0 (1 standard drink = 0.6 oz pur e alcohol) Comments Unknown Sex and Gender Information Value Date Recorded Sex Assigned at Not on file Legal Sex Female 12:49 AM OCEANOGRAPHER ASSISTANT Gender Identity Female 04/06/2024 11:30 AM CDT Sexual Orientation Not on file Last Filed Vital Signs Vital Sign Reading Time Taken Comments Blood Pressure 144/82 06/02/2025 2:12 PM CDT Pulse 97 06/02/2025 2:12 PM CDT Temperature 36.7 C (98.1 F) 01/23/2023 11:01 AM CDT Respiratory Rate 18 01/23/2023 11:01 AM CDT Oxygen Saturation 97% 06/02/2025 2:12 PM CDT Inhaled Oxygen Concentration - - Weight 59 kg (130 lb) 06/02/2025 2:12 PM CDT Height 165.1 cm (5' 5) 02/16/2025 12:45 PM CDT Body Mass Index 21.63 02/16/2025 12:45 PM CDT Plan of Treatment Health Maintenance Due Date Last Done Comments Albumin Creatinine Ratio, Urine 1947 Depression Screening 1947 Fall Risk Assessment 1947 Hepatitis C Screening 1945 eGFR 1947 Dilated Eye Exam 1947 Foot Exam 1947 Lipid Panel 1947 Hepatitis B Screening 1965 Zoster Vaccine (1 of 2) 1997 Well Visit 65+ 2012 DTaP/Tdap/Td Vaccine (2 - Tdap) 04/24/2022 2 Osteoporosis Screening-Bone Density Scan 03/22/2024 03/22/2022, 06/16/2019, 10/09/2016, Additional history exists Hemoglobin A1C 06/27/2024 12/26/2023 Covid-19 Vaccine (3 - 2024-2 6 season) 2025 12/11/2020, 11/18/2020 Influenza Vaccine (#1) 2025 3, 09/13/2021, 06/23/2020, Additional history exists Pneumococcal vaccine 65+ Completed 07/17/2018, 05/2016 Breast Cancer Screening-Mammogram Discontinued 09/11/2021, 09/01/2019, 06/24/2018, Additional history exists Procedures Procedure Name Priority Date/Time Associated Diagnosis Comments AMMONIA Routine 07/30/2025 1:53 PM CDT BONE MINERAL DENSITY 10/09/2016 from Last 3 Months or Most Recently Relevant to Health Maintenance Results * Ammonia (07/30/2025 1:53 PM CDT) Ammonia 30 <=50 mcmol/L Blood 07/30/2025 1:53 PM CDT 07/30/2025 3:48 PM CDT Notinfile Unknown LAB BLOOD ORDERABLES Final Res ult [facility] [address] Department [place] [address] * BONE MINERAL DENSITY (10/09/2016) Anatomical Region Laterality Modality Radiographic Marge ging Narrative 10/09/2016 Ordered by an unspecified provider. Historical Provider MD HELM DXA PROCEDURES Final Result from Last 3 Months or Most Recently Relevant to Health Maintenance Insurance [facility] MEDICARE ADVANTAGE AET MEDICARE [facility] MEDICARE Address: [facility] [id number] [place] [phone] Care Teams Fish Peddler Relationship Specialty Start Date End Date Elaina Gomes MD [address] [facility] [address] [place] [address] PCP - General 05/21/17 Manuel Hyman MD [address] [place] [address] Surgeon Vascular Surgery 11/05/22
--- OUTSIDE RECORDS SUMMARY | 2025-10-08 07:53 | XMS_ITS | Encounter Summary ---
Author Organization [facility] Address [address] [place] [address] Care Team Providers Care District Medical Examiner Name Role Phone Elaina Gomes MD Primary Care Provid er Encounter Details Date Type Department Care Team (Latest Contact Info) Description 01/09/1999 Inpatient Historical [facility] [place] [address] [facility] [place] [address] Corpus luteum cyst or hematoma (Primary Dx) Social History Tobacco Use Types Packs/Day Years Used Date Smoking Tobacco: Never Assessed Comments Unknown Sex and Gender Information Value Date Recorded Sex Assigned at Not on file Legal Sex Female 4:07 AM SALES CONSULTANT Gender Identity Not on file Sexual Orientation Not on file documented as of this encounter Plan of Treatment Not on file documented as of this encounter Visit Diagnoses Diagnosis Corpus luteum cyst or hematoma- Primary documented in this encounter Additional Health Concerns Infection Onset Date Last Indicated Resolved Time R/O COVID-19 07/31/2024 07/31/2024 07/31/2024 4:18 PM CDT documented as of this encounter Care Teams District Medical Examiner Relationship Specialty Start Date End Date Elaina Gomes MD PCP - General Internal Medicine 06/25/14 documented as of this encounter
--- OUTSIDE RECORDS SUMMARY | 2025-10-08 07:53 | XMS_ITS | Encounter Summary ---
Author Organization [facility] Address [address] [place] [address] Care Team Providers Care Mohel Name Role Phone Elaina Gomes MD Primary Care Provid er Encounter Details Date Type Department Care Team (Late st Contact Info) Description 09/12/2004 Outpatient [facility] Internal Medicine - [place] [address] [place] [address] Jas Griffith MD [address] [facility] [address] [place] [address] Social History Tobacco Use Types Packs/Day Years Used Date Smoking Tobacco: Never Assessed Comments Unknown Sex and Gender Information Value Date Recorded Sex Assigned at Not on file Legal Sex Female 4:07 AM RESIDENTIAL SALES ASSOCIATE Gender Identity Not on file Sexual Orientation Not on file documented as of this encounter Plan of Treatment Not on file documented as of this encounter Visit Diagnoses Not on filedocumented in this encounter Additional Health Concerns Infection Onset Date Last Indicated Resolved Time R/O COVID-19 07/31/2024 07/31/2024 07/31/2024 4:18 PM CDT documented as of this encounter Care Teams Mohel Relationship Specialty Start Date End Date Elaina Gomes MD PCP - General Internal Medicine 06/25/14 documented as of this encounter
--- OUTSIDE RECORDS SUMMARY | 2025-10-08 07:53 | XMS_ITS | Encounter Summary ---
Author Organization [facility] Address [address] [place] [address] Care Team Providers Care Storm Window Installer Name Role Phone Elaina Gomes MD Primary Care Provid er Encounter Details Date Type Department Care Team (Latest Contact Info) Description 05/03/2006 Outpatient Historical [facility] Festus Lerner MD [address] [facility] [address] [place] [address] Other Dyspnea and Respiratory Abnormality (Primary Dx) Social History Tobacco Use Types Packs/Day Years Used Date Smoking Tobacco: Never Assessed Comments Unknown Sex and Gender Information Value Date Recorded Sex Assigned at Not on file Legal Sex Female 4:07 AM RATE INSERTER Gender Identity Not on file Sexual Orientation Not on file documented as of this encounter Plan of Treatment Not on file documented as of this encounter Visit Diagnoses Diagnosis Other dyspnea and respiratory abnormality- Primary documented in this encounter Additional Health Concerns Infection Onset Date Last Indicated Resolved Time R/O COVID-19 07/31/2024 07/31/2024 07/31/2024 4:18 PM CDT documented as of this encounter Care Teams Storm Window Installer Relationship Specialty Start Date End Date Elaina Gomes MD PCP - General Internal Medicine 06/25/14 documented as of this encounter
--- OUTSIDE RECORDS SUMMARY | 2025-10-08 07:53 | XMS_ITS | Encounter Summary ---
Author Organization [facility] Address [address] [place] [address] Care Team Providers Care Block Cleaner Name Role Phone Elaina Gomes MD Primary Care Provid er Encounter Details Date Type Department Care Team (Latest Contact Info) Description 05/29/2004 Outpatient Historical [facility] Jas Griffith MD [address] [facility] [address] [place] [address] PALPITATIONS (Primary Dx) Social History Tobacco Use Types Packs/Day Years Used Date Smoking Tobacco: Never Assessed Comments Unknown Sex and Gender Information Value Date Recorded Sex Assigned at Not on file Legal Sex Female 4:07 AM CHOIR SINGER Gender Identity Not on file Sexual Orientation Not on file documented as of this encounter Plan of Treatment Not on file documented as of this encounter Visit Diagnoses Diagnosis Palpitations- Primary documented in this encounter Additional Health Concerns Infection Onset Date Last Indicated Resolved Time R/O COVID-19 07/31/2024 07/31/2024 07/31/2024 4:18 PM CDT documented as of this encounter Care Teams Block Cleaner Relationship Specialty Start Date End Date Elaina Gomes MD PCP - General Internal Medicine 06/25/14 documented as of this encounter
--- OUTSIDE RECORDS SUMMARY | 2025-10-08 07:53 | XMS_ITS | Encounter Summary ---
Author Organization [facility] Address [address] [place] [address] Care Team Providers Care Curing Press Operator Name Role Phone Elaina Gomes MD Primary Care Provid er Encounter Details Date Type Department Care Team (Late st Contact Info) Description 03/06/2006 Emergency [facility] Josephine Dillon MD NO ADDRESS ON FILE Er, Authorized P NO ADDRESS ON FILE Unspecified Chest Pain (Primary Dx) Social History Tobacco Use Types Packs/Day Years Used Date Smoking Tobacco: Never Assessed Comments Unknown Sex and Gender Information Value Date Recorded Sex Assigned at Not on file Legal Sex Female 4:07 AM SHIP RIGGER Gender Identity Not on file Sexual Orientation Not on file documented as of this encounter Plan of Treatment Not on file documented as of this encounter Procedures Procedure Name Priority Date/Time Associated Diagnosis Comments TROPONIN (W/REFLEX CKMB/CK) Routine 03/06/2006 10:50 PM CDT CBC WITH DIFFERENTIAL Routine 03/06/2006 10:50 PM CDT CBC WITH DIFFERENTIAL Routine 03/06/2006 10:50 PM CDT documented in this encounter Results * TROPONIN (W/REFLEX CKMB/CK) (03/06/2006 10:50 PM CDT) TROPONIN T <0.01 <=0.03 ng/mL INTERFACE SYSTEM TROPONIN T INTERP Negative INTERFACE SYSTEM 03/06/2006 10:5 0 PM CDT Historical Provider CHEMISTRY ORDERABLES Final R esult Performing Organization Address [facility] de Phone Number INTERFACE SYSTEM Refer to clinic/hospital department * (ABNORMAL) CBC WITH DIFFERENTIAL (03/06/2006 10:50 PM CDT) NEUTROPHILS 40(L) 45 - 70 % INTERFAC E SYSTEM LYMPHOCYTES 44 16 - 45 % INTERFAC E SYSTEM MONOCYTES 10 3 - 13 % INTERFACE SYSTEM EOSINOPHILS 5 0 - 7 % INTERFAC E SYSTEM BASOPHILS 1 0 - 2 % INTERFACE SYSTEM NEUTROPHIL ABSOLUTE 1.98 1.90 - 7.00 K/uL INTERFACE SYSTEM LYMPHOCYTE ABSOLUTE 2.17 0.70 - 4.50 K/uL INTERFACE SYSTEM MONOCYTE ABSOLUTE 0.47 0.10 - 1.30 K/uL INTERFACE SYSTEM EOSINOPHIL ABSOLUTE 0.26 0.00 - 0.70 K/uL INTERFACE SYSTEM BASOPHILS ABSOLUTE 0.04 0.00 - 0.20 K/uL INTERFACE SYSTEM 03/06/2006 10:5 0 PM CDT Historical Provider HEMATOLOGY ORDERABLES Final Result Performing Organization Address [facility] Phone Number INTERFACE SYSTEM Refer to clinic/hospital department * CBC WITH DIFFERENTIAL (03/06/2006 10:50 PM CDT) WBC 4.9 4.0 - 9.8 K/uL INTERFACE SYSTEM RBC 4.33 3.90 - 4.90 M/uL INTERFACE SYSTEM HEMOGLOBIN 12.5 11.8 - 14.8 g/dL INTERFACE SYSTEM HEMATOCRIT 36.0 35.5 - 44.0 % INTERFACE SYSTEM MCV 83.1 82.0 - 99.0 fL INTERFACE SYSTEM MCH 28.9 27.2 - 32.6 pg INTERFACE SYSTEM MCHC 34.7 31.5 - 35.5 % INTERFACE SYSTEM RDW 13.3 11.5 - 14.5 % INTERFACE SYSTEM RDW-STDEV 40.7 37.1 - 48.7 fL INTERFACE SYSTEM PLATELETS 206 140 - 350 K/uL INTERFACE SYSTEM MPV 11.1 9.3 - 12.4 fL INTERFACE SYSTEM 03/06/2006 10:5 0 PM CDT us Historical Provider HEMATOLOGY ORDERABLES Final Result INTERFACE SYSTEM Refer to clinic/hospital department documented in this encounter Visit Diagnoses Diagnosis Chest pain, unspecified- Primary documented in this encounter Additional Health Concerns Infection Onset Date Last Indicated Resolved Time R/O COVID-19 07/31/2024 07/31/2024 07/31/2024 4:18 PM CDT documented as of this encounter Care Teams Curing Press Operator Relationship Specialty Start Date End Date Elaina Gomes MD PCP - General Internal Medicine 06/25/14 documented as of this encounter
--- OUTSIDE RECORDS SUMMARY | 2025-10-08 07:53 | XMS_ITS | Encounter Summary ---
Author Organization [facility] Address [address] [place] [address] Care Team Providers Care Data Security Consultant Name Role Phone Elaina Gomes MD Primary Care Provid er Encounter Details Date Type Department Care Team (Late st Contact Info) Description 05/13/2004 Outpatient Historical [facility] ([facility]) [address] [place] [address] Brennan Lam MD [address] [address] Social History Tobacco Use Types Packs/Day Years Used Date Smoking Tobacco: Never Assessed Comments Unknown Sex and Gender Information Value Date Recorded Sex Assigned at Not on file Legal Sex Female 4:07 AM BUSINESS DEVELOPMENT ASSISTANT Gender Identity Not on file Sexual Orientation Not on file documented as of this encounter Plan of Treatment Not on file documented as of this encounter Visit Diagnoses Not on filedocumented in this encounter Additional Health Concerns Infection Onset Date Last Indicated Resolved Time R/O COVID-19 07/31/2024 07/31/2024 07/31/2024 4:18 PM CDT documented as of this encounter Care Teams Data Security Consultant Relationship Specialty Start Date End Date Elaina Gomes MD PCP - General Internal Medicine 06/25/14 documented as of this encounter
--- OUTSIDE RECORDS SUMMARY | 2025-10-08 07:53 | XMS_ITS | Encounter Summary ---
Author Organization [facility] Address [address] [place] [address] Care Team Providers Care Feed Weigher Name Role Phone Elaina Gomes MD Primary Care Provid er Encounter Details Date Type Department Care Team (Late st Contact Info) Description 03/05/2005 Outpatient [facility] Internal Medicine - [place] [address] [place] [address] Jas Griffith MD [address] [facility] [address] [place] [address] Social History Tobacco Use Types Packs/Day Years Used Date Smoking Tobacco: Never Assessed Comments Unknown Sex and Gender Information Value Date Recorded Sex Assigned at Not on file Legal Sex Female 4:07 AM COMPLIANCE DIRECTOR Gender Identity Not on file Sexual Orientation Not on file documented as of this encounter Last Filed Vital Signs Vital Sign Reading Time Taken Comments Blood Pressure 110/60 03/05/2005 2:00 PM CDT Pulse 70 03/05/2005 2:00 PM CDT Temperature - - Respiratory Rate - - Oxygen Saturation - - Inhaled Oxygen Concentration - - Weight 61.7 kg (136 lb) 03/05/2005 2:00 PM CDT Height - - Body Mass Index - - documented in this encounter Plan of Treatment Not on file documented as of this encounter Visit Diagnoses Not on filedocumented in this encounter Additional Health Concerns Infection Onset Date Last Indicated Resolved Time R/O COVID-19 07/31/2024 07/31/2024 07/31/2024 4:18 PM CDT documented as of this encounter Care Teams Feed Weigher Relationship Specialty Start Date End Date Elaina Gomes MD PCP - General Internal Medicine 06/25/14 documented as of this encounter
--- OUTSIDE RECORDS SUMMARY | 2025-10-08 07:53 | XMS_ITS | Encounter Summary ---
Author Organization [facility] Healthcare Address [address] [place] [address] Care Team Providers Care Senior It Auditor Name Role Phone Elaina Gomes MD Primary Care Provid er Manuel Hyman MD Unavailable [phone] Encounter Details Date Type Department Care Team (Late st Contact Info) Description 07/15/2024 Documentation [facility] OP Speech Therapy [facility] [address] [address] Charisse Farrar, AUDREY Social History Tobacco Use Types Packs/Day Years Used Date Smoking Tobacco: Never Alcohol Use Standard Drinks/Week Comments No 0 (1 standard drink = 0.6 oz pur e alcohol) Comments Unknown Sex and Gender Information Value Date Recorded Sex Assigned at Not on file Legal Sex Female 12:49 AM PARACHUTE MANUFACTURING SUPERVISOR Gender Identity Female 04/06/2024 11:30 AM CDT Sexual Orientation Not on file documented as of this encounter Plan of Treatment Not on file documented as of this encounter Visit Diagnoses Not on filedocumented in this encounter Care Teams Senior It Auditor Relationship Specialty Start Date End Date Elaina Gomes MD [address] [facility] [address] [place] [address] PCP - General 05/21/17 Manuel Hyman MD [address] [place] [address] Surgeon Vascular Surgery 11/05/22 documented as of this encounter
--- OUTSIDE RECORDS SUMMARY | 2025-10-08 07:53 | XMS_ITS | Clinical Summary ---
Author Organization [facility] Address [facility] [place] [address] Care Team Providers Care Appraisal Analyst Name Role Phone Elaina Gomes MD Primary Care Provider + Allergies No known active allergies Medications carbidopa-levo dopa (SINEMET) 25-100 MG tablet Take 1 tablet by mouth 3 (three) times daily. 4 Active DULoxetine (CYMBALTA) 20 MG capsule Take 1 capsule (20 mg total) by mouth daily. 4 Active SYNTHROID 75 MCG tablet Take 1 tablet (75 mcg total) by mouth see administration instructions. Patient takes 6 days a week, every day EXCEPT for Saturday 4 Active memantine (NAMENDA) 10 MG tablet Take 1 tablet (10 mg total) by mouth 2 (two) times daily. 3 Active minoxidil (LONITEN) 2.5 MG tablet Take 0.5 tablets (1.25 mg total) by mouth daily. 4 Active oxybutynin XL (DITROPAN-XL) 5 MG 24 hr tablet Take 1 tablet (5 mg total) by mouth daily. 4 Active NUPLAZID 34 MG Cap capsule Take 1 capsule (34 mg total) by mouth daily with lunch. 4 Active Active Problems Problem Noted Date Diagnosed Date S/P ORIF (open reduction internal fixation) frac ture 10/27/2024 Closed comminuted intertroch anteric fracture of right femur, initial encounter 09/09/2024 Hip fracture 09/09/2024 Parkinson's disease 01/08/2023 Social History Tobacco Use Types Packs/Day Years Used Date Smoking Tobacco: Never Smokeless Tobacco: Never Tobacco Cessation:Counseling Given: No [facility] Utilities Answer Date Recorded In the past 12 months has th e electric, gas, oil, or water company threatened to shut off services in your home? No 09/09/2024 Humiliation, Afraid, Rape, and Kick questionnair e Answer Date Recorded Within the last year, have y ou been afraid of your partner or ex-partner? No 09/09/2024 Within the last year, have y ou been humiliated or emotionally abused in other ways by your partner or ex-partner? No Within the last year, have y ou been kicked, hit, slapped, or otherwise physically hurt by your partner or ex-partner? No 09/09/2024 Within the last year, have y ou been raped or forced to have any kind of sexual activity by your partner or ex-partner? No 09/09/2024 Overall Financial Resource Strain (CARDIA) Answe r Date Recorded How hard is it for you to pa y for the very basics like food, housing, medical care, and heating? Not hard at all 09/09/2024 PHQ-2 Answer Date Recorded Patient Health Questionnaire-2 Score 0 10/27/2024 Hunger Vital Sign Answer Date Recorded Within the past 12 months, y ou worried that your food would run out before you got the money to buy more. Never true 09/09/20 24 Within the past 12 months, t he food you bought just didn't last and you didn't have money to get more. Never true 09/09/2024 PRAPARE - Transportation Answer Date Re corded In the past 12 months, has l ack of transportation kept you from medical appointments or from getting medications? No 08/15 In the past 12 months, has l ack of transportation kept you from meetings, work, or from getting things needed for daily living? No 09/09/2024 Housing Stability Vital Sign Answer Javier e Recorded In the last 12 months, was t here a time when you were not able to pay the mortgage or rent on time? No 09/09/2024 In the past 12 months, how m any times have you moved where you were living? 0 09/09/2024 At any time in the past 12 m [facility], were you homeless or living in a fdc (including now)? No 09/09/2024 Comments No Sex and Gender Information Value Date Recorded Sex Assigned at Not on file Legal Sex Female 7:16 PM CDT Gender Identity Not on file Sexual Orientation Not on file Last Filed Vital Signs Vital Sign Reading Time Taken Comments Blood Pressure 116/65 10/27/2024 4:27 PM SQUIRT MACHINE OPERATOR Pulse 104 10/27/2024 4:27 PM SQUIRT MACHINE OPERATOR Temperature 36.7 C (98 F) 10/27/2024 4:27 PM SQUIRT MACHINE OPERATOR Respiratory Rate 16 09/16/2024 8:27 AM SQUIRT MACHINE OPERATOR Oxygen Saturation 98% 09/16/2024 8:27 AM SQUIRT MACHINE OPERATOR Inhaled Oxygen Concentration - - Weight 56.2 kg (124 lb) 10/27/2024 4:27 PM SQUIRT MACHINE OPERATOR Height 165.1 cm (5' 5) 09/09/2024 7:11 AM SQUIRT MACHINE OPERATOR Body Mass Index 20.63 09/09/2024 7:11 AM SQUIRT MACHINE OPERATOR Plan of Treatment Health Maintenance Due Date Last Done Comments Hepatitis C 1965 Zoster Vaccines (1 of 2) 1997 Annual Medicare Wellness Visit 2012 RSV Immunization or 60+ Years (1 - 1-dose 75+ series) 2022 COVID-19 Vaccine (3 - season) 2025 12/11/2020, 11/18/2020 Influenza Adult (#1) 2025 09/13/2021, 06/23/2020, 07/24/2019, Additional history exists DTaP, Tdap and Td Vaccines (3 - Td or Tdap) 05/16/2031 05/16/2021, 04/24/2012 Pneumococcal Vaccine: 50+ Years Completed 07/17/2018, 08/21/2016 Dexa Scan (General) Completed 03/22/2022, 06/16/2019, 06/16/2019, Additional history exists PHQ-2 (Physician Ey[place]) Completed 10/27/2024 Hepatitis A Vaccines Aged Out No long er eligible based on patient's age to complete this topic Meningococcal B Vaccine Aged Out No l onger eligible based on patient's age to complete this topic Meningococcal Vaccine Aged Out No bell raina eligible based on patient's age to complete this topic RSV Immunizations Under 20 Months Aged Out No longer eligible based on patient's age to complete this topic Medical Devices Implanted Type Area Diamond Driller Helper Device Identifier Shelf Expiration Date Model / Serial / Lot Screw Gamma 3 [place] - [id number] Implanted:Qty: 1 on 09/10/2024 by Augustin Navarro MD at [facility] Screw Right: Hip [employer] [id number] 04/12/2027 [id number] / / [id number] Screw Bone 5mm 37.5mm T2 Titanium Full Thread Foot Ankle Lock Sterile - [id number] Implanted:Qty: 1 on 09/10/2024 by Augustin Navarro MD at [facility] Screw Right: Hip [employer] [id number] 06/13/2028 [id number] S / / [id number] System Trochanteric Nail Kit Implanted:Qty: 1 on 09/10/2024 by Augustin Navarro MD at [facility] Right: Hip [employer] 12/12/2027 [id number] S / / [id number] Procedures Procedure Name Priority Date/Time Associated Diagnosis Comments BONE DENSITY/DEXA Routine 03/22/2022 11: 07 AM CDT Age-related osteoporosis without current pathological fracture from Last 3 Months or Most Recently Relevant to Health Maintenance Results * BONE DENSITY/DEXA (03/22/2022 11:07 AM CDT) Anatomical Region Laterality Modality Bone Mammography 03/22/2022 11:3 6 AM CDT Impressions 03/22/2022 11:42 AM CDT Impression: BMD measured at both femoral necks at WHO category level of osteoporosis. BMD measured at AP lumbar spine and at both total hips at level of osteopenia. Ordered By: MARBELLA CELIS Interpreted By: Nathanael Alcaraz MD, 03/22/2022 11:36 AM Narrative 03/22/2022 11:42 AM CDT Examination: DEXA Bone densitometry EXAM DATE: 03/22/2022 10:29 AM Clinical history: Postmenopausal. Calcium supplementation. Vitamin D use. Dairy product consumption. Medication use for treatment of osteoporosis. Technique: DEXA bone minimal density evaluation was performed in the AP projection over the lumbar spine and over both hips in the AP projection utilizing standard imaging techniques. Assessment: The BMD measured at the AP spine L1-L4 is 0.883 g/cm? with a T-score of -1.5 and a Z-Score of 0.9. The patient is considered osteopenic according to World Health Organization (WHO) criteria. Bone density is between 10 and 25% below young normal. Fracture risk is moderate. Treatment is advised. The BMD measured at the AP lumbar spine has decreased 0.088 g/sq cm since study 06/16/2019. The BMD measured at the femur total left is 0.678 g/cm? with a T-score of -2.2 and a Z-Score of -0.4. The patient is considered osteopenic according to World Health Organization (WHO) criteria. Bone density is between 10 and 25% below young normal. Fracture risk is moderate. Treatment is advised. The BMD measured at the left total hip has decreased 0.022 g/sq cm since study 06/16/2019. The BMD measured at the left femoral neck is 0.524 g/sq cm resulting in a T score of -2.9 and a Z score of -0.9, values at the WHO category level of osteoporosis. The BMD measured at the femur total right is 0.670 g/cm? with a T-score of -2.2 and aZ-Score of -0.5. The patient is considered osteopenic according to World Health Organization (WHO) criteria. Bone density is between 10 and 25% below young normal. Fracture risk is moderate. Treatment is advised. The BMD measured at the right total hip has decreased 0.036 g/sq cm since study 06/16/2019. The BMD measured at the right femoral neck is 0.556 g/sq cm resulting in a T score of -2.6 and a Z score of -0.6, values at the WHO category level of osteoporosis. FRAX results: 10 year probability of major osteoporotic fracture 17% and of hip fracture 6.4%. Recommendations: All patients should ensure an adequate intake of dietary calcium and vitamin D. The NOF recommend adults under the age of 50 need 1000 mg of calcium and 400-800 IU of vitamin D daily. Effective therapy for the prevention and treatment of osteoporosis include biphosphonates. Follow-up: People with diagnosed cases of osteoporosis or at high risk for fracture should have regular bone mineral density test. For patients eligible for Medicare, routine testing is allowed once every 2 years. Testing frequency can be increased to one year for patients who have rapidly progressing disease, those who are receiving or discontinuing medical therapy to restore bone mass, or have additional risk factors. Based on these results, a followup exam is recommended in no earlier than 2 years. Procedure Note Nathanael Alcaraz MD - 03/22/2022 Examination: DEXA Bone densitometry EXAM DATE: 03/22/2022 10:29 AM Clinical history: Postmenopausal. Calcium supplementation. Vitamin D use.Dairy product consumption. Medication use for treatment of osteoporosis. Technique: DEXA bone minimal density evaluation was performed in the APprojection over the lumbar spine and over both hips in the AP projectionutilizing standard imaging techniques. Assessment: The BMD measured at the AP spine L1-L4 is 0.883 g/cm? with a T-score of-1.5 and a Z-Score of 0.9. The patient is considered osteopenicaccording to World Health Organization (WHO) criteria. Bone density isbetween 10 and 25% below young normal. Fracture risk is moderate.Treatment is advised. The BMD measured at the AP lumbar spine has decreased 0.088 g/sq cm sincestudy 06/16/2019. The BMD measured at the femur total left is 0.678 g/cm? with a T-score of-2.2 and a Z-Score of -0.4. The patient is considered osteopenicaccording to World Health Organization (WHO) criteria. Bone density isbetween 10 and 25% below young normal. Fracture risk is moderate.Treatment is advised. The BMD measured at the left total hip has decreased 0.022 g/sq cm sincestudy 06/16/2019. The BMD measured at the left femoral neck is 0.524 g/sq cm resulting in aT score of -2.9 and a Z score of -0.9, values at the WHO category level ofosteoporosis. The BMD measured at the femur total right is 0.670 g/cm? with a T-score of-2.2 and aZ-Score of -0.5. The patient is considered osteopenicaccording to World Health Organization (WHO) criteria. Bone density isbetween 10 and 25% below young normal. Fracture risk is moderate.Treatment is advised. The BMD measured at the right total hip has decreased 0.036 g/sq cm sincestudy 06/16/2019. The BMD measured at the right femoral neck is 0.556 g/sq cm resulting in aT score of -2.6 and a Z score of -0.6, values at the WHO category level ofosteoporosis. FRAX results: 10 year probability of major osteoporotic fracture 17% andof hip fracture 6.4%. Recommendations: All patients should ensure an adequate intake of dietary calcium andvitamin D. The NOF recommend adults under the age of 50 need 1000 mg ofcalcium and 400-800 IU of vitamin D daily. Effective therapy for theprevention and treatment of osteoporosis include biphosphonates. Follow-up: People with diagnosed cases of osteoporosis or at high risk for fractureshould have regular bone mineral density test. For patients eligible forMedicare, routine testing is allowed once every 2 years. Testing frequencycan be increased to one year for patients who have rapidly progressingdisease, those who are receiving or discontinuing medical therapy torestore bone mass, or have additional risk factors. Based on these results, a followup exam is recommended in no earlier than2 years. Impression: BMD measured at both femoral necks at WHO category level ofosteoporosis. BMD measured at AP lumbar spine and at both total hips at level ofosteopenia. Ordered By: MARBELLA CELIS Interpreted By: Nathanael Alcaraz MD, 03/22/2022 11:36 AM Marbella Celis MD DEXA Final Result from Last 3 Months or Most Recently Relevant to Health Maintenance Insurance [employer] MEDICARE Advance Directives * Full Code (Latest Code Status on File) Date Activated Date Inactivated Comments 09/09/2024 10:24 AM 09/16/2024 3:52 PM Care Teams Appraisal Analyst Relationship Specialty [place] [address] [place] [phone] PCP - General UROLOGY 06/24/18
--- OUTSIDE RECORDS SUMMARY | 2025-10-08 07:53 | XMS_ITS | Clinical Summary ---
Author Organization [facility] Address [address] [place] [address] Phone Care Team Providers Care Patient Service Coordinator Name Role Phone Elaina Gomes MD Primary Care Provid er Allergies No known active allergies Medications Synthroid 75 mcg tablet 11/14/19 22 Active carbidopa-levodopa (SINEMET) 25-100 mg tablet Take 1 Tablet by mouth. 01/26/20 23 Active aspirin (ECOTRIN EC) 81 mg Tablet, Delayed Release (E.C.) Take 81 mg by mouth daily. Active memantine (NAMENDA) 10 mg Tablet Take 10 mg by mouth 2 times daily. 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 08/19/20 24 Active DULoxetine (CYMBALTA) 20 mg Capsule, Delayed Release(E.C.)Indic ations:Generalized anxiety disorder TAKE ONE CAPSULE BY MOUTH IN THE MORNING 30 Capsule 4 06/03/20 25 Active acetaminophen (TYLENOL) 500 mg tablet TAKE ONE TABLET BY MOUTH EVERY 8 HOURS NEEDED FOR PAIN 28 Tablet 1 11/13/20 25 Active oxyBUTYnin (DITROPAN XL) 5 mg Extended Release 24 hour tabletIndications: OAB (overactive bladder) TAKE ONE TABLET BY MOUTH DAILY 30 Tablet 4 10/01/20 25 Active oxyBUTYnin (DITROPAN XL) 5 mg Extended Release 24 hour tabletIndications: OAB (overactive bladder) TAKE ONE TABLET BY MOUTH DAILY 30 Tablet 09/02/20 25 025 Discontinued Active Problems Patient Care Coordination No te Formatting of this note migh t be different from the original. 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 Poor prep. Follow-up screening colonoscopy 3 years. Consider 2-day prep. Varicose veins of bilateral lower extremities with other complications 05/05/2021 Overview (03/05/2023): Last Assessment & Plan: Patient continues to have varicosities along with [...] the stockings on. Plan: Return as needed. Venous reflux 03/06/2021 Lipoma of thigh 01/19/2021 Pure hypercholesterolemia 08/21/2016 Abnormal mammogram 01/24/2016 Overview (02/08/2016): Left calc. BIRADS 4. For stereo Breast lump in female 01/24/2016 Overview (01/24/2016): left Osteoporosis 11/10/2015 Cataract 10/25/2015 Retinal tear of left eye 10/25/2015 Leukopenia 06/08/2015 Hypothyroidism 07/08/2014 Overview (07/08/2014): Dr. Maddy Terry home care attendant Renal cysts, acquired, bilateral 05/13/2013 Overview (06/08/2015): US 11/10/11 - 4.3x3.4x4.2 R renal cyst US 04/30/13 - 4.5cm R renal cyst US 11/09/13 - 4.5cm benign R renal cyst (no change from 2012) Allergic rhinitis due to other allergen 09/12/20 04 Esophageal reflux 06/12/2004 Generalized anxiety disorder 04/26/2004 Palpitations 04/26/2004 Resolved Problems Problem Noted Date Diagnosed Date Resolved Date Dementia without behavioral disturbance 05/22/2023 08/19/2024 Parkinson's disease 11/14/2022 12/05/19 24 Memory disturbance 11/14/2022 Chest pain, unspecified 01/13/200710/14 Respiratory abnormality, unspecified 03/26/2006 10/26/2010 Orthopnea 03/26/2006 10/26/2010 Backache, unspecified 03/05/20052010 Other and unspecified noninf ectious gastroenteritis and colitis(558.9) 01/18/200510/26 Pain in limb 10/23/2004 10/26/2010 Nonspecific (abnormal) findi ngs on radiological and other examination of lung field 06/12/2004 10/26/2010 Other and unspecified hyperlipidemia 04/26/2004 08/21/2016 Routine general medical exam ination at a health care facility 04/26/2004 06/25/2010 Acid reflux 10/28/2019 Encounters Date Type Department Care Team Description 10/05/2025 External Device Data STL ABSTRACTION Provider, Abstract 10/01/2025 [facility] Internal Medicine Medical [place] [address] [address] Elaina Gomes MD OAB (overactive bladder) 09/22/2025 Orders Only [facility] [address] [place] [address] Elaina Gomes MD Elevated glucose 09/02/2025 Telephone [facility] [address] [place] [address] Elaina Gomes MD Results; Patient Communication 09/02/2025 Refill [facility] [address] [place] [address] Elaina Gomes MD OAB (overactive bladder) 09/01/2025 2:00 PM ANTENNA INSTALLER Video Visit [facility] [address] [place] [address] Elaina Gomes MD Wellness examination (Primary Dx); 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, with mood disturbance (CMS/HCC); Parkinson's disease with dyskinesia, unspecified whether manifestations fluctuate (CMS/HCC); Bruising; Uses walker; History of falling; Age-related osteoporosis without current pathological fracture; ACP (advance care planning); Need for assistance with personal care 08/31/2025 Telephone [facility] [address] [place] [address] Elaina Gomes MD Provider Call; Patient Communication 08/26/2025 Telephone [facility] [address] [place] [address] Elaina Gomes MD Needs Appointment 08/25/2025 Refill [facility] [address] [place] [address] Elaina Gomes MD 08/06/2025 Orders Only [facility] [address] [place] [address] Provider, Abstract 08/04/2025 External Device Data STL ABSTRACTION Provider, Abstract 08/02/2025 Telephone [facility] [address] [facility] [place] [address] Elaina Gomes MD Provider Call 07/28/2025 Telephone [facility] [address] [facility] [place] [address] Elaina Gomes MD Provider Call 07/27/2025 External Device Data STL ABSTRACTION Provider, Abstract 07/22/2025 Telephone [facility] [address] [facility] [place] [address] Elaina Gomes MD Provider Call 07/20/2025 External Device Data STL ABSTRACTION Provider, Abstract 07/20/2025 External Device Data STL ABSTRACTION Provider, Abstract from Last 3 Months Immunizations Immunization Administration Dates Next Due (INFANRIX)(6 WKS-6 YRS) DIPT HERIA, TETANUS TOXOIDS, AND ACCELLULAR PERTUSSIS VACCINE (DTAP), 0.5 ML IM 04/24/2012 (PFIZER)(12 YR UP) COVID-19 VACCINE - EMERGENCY USE AUTHORIZATION, MRNA, [id number](PF) 30 MCG/0.3 ML IM SUSP 12/11/2020,12/11/2020,11/18/2020,11/18 (PNEUMOVAX 23)(50 YRS UP) PN EUMOCOCCAL POLYSACCHARIDE (PPV23) 0.5 ML, IM 07/17/2018 (PREVNAR 13)(6 WKS UP) PNEUM OCOCCAL CONJUGATE (PCV13) 0.5 ML, IM 08/21/2016 INFLUENZA VACCINE HIGH DOSE QUADRIVALENT 65 YR UP PF IM 06/23/2020 Influenza Seasonal Unspecifi ed Formulation IM 09/13/2021,06/23/2020,07/24/2019,07/31,08/04/2013,10/07/2012,08/18/2012 ,08/02/2011,08/03/2010,07/18/2009 Influenza Vaccine High Dose 65+ Yrs IM 1 ,07/16/2018,07/16/2017,08/21,07/27/2015 Family History Medical History Relation Name Comments Eclampsia Brother Other Father Aneesh Crow Black Lung Heart Disease Maternal Grandmother Nidia Gaby Heart Disease Maternal Uncle all three br others Cancer Mother Marlys Basola Pancreatic ca ncer Pancreatic Cancer Mother Marlys Basola Hypertension Sister Sabrina Barreto Colon Cancer Neg Hx Relation Name Status Comments Brother Alive Father Aneesh Crow Maternal Grandfather Maternal Grandmother Nidia Griffin Maternal Uncle Mother Marlys [place] Paternal Grandfather Paternal Grandmother Sister Sabrina Barreto Alive Social History Tobacco Use Types Packs/Day Years Used Date Smoking Tobacco: Never Passive Smoke Exposure: Never Smokeless Tobacco: Never Tobacco Cessation:Counseling Given: No Alcohol Use Standard Drinks/Week Comments Not Currently 0 (1 standard drink = 0.6 oz pur e alcohol) rarely, annual Financial Resource Strain Answer Date R ecorded How hard is it for you to pa y for the very basics like food, housing, medical care, and heating? Not hard at all 04/12/2022 Food Insecurity Answer Date Recorded In the past 12 months, have you worried that your food would run out before you had money to buy more? Never true 04/12/2022 In the past 12 months, did y ou run out of food and didn't have money to buy more? Never true 04/12/2022 Transportation Needs Answer Date Record ed In the past 12 months, has l ack of transportation kept you from medical appointments or from getting medications? No 04/12/2022 Lack of Transportation (Non-Medical) Not on file 04/12/2022 Feeling Safe Answer Date Recorded Are you in a relationship wi th someone who hurts you emotionally and/or physically? No 07/31/2024 Comments No Sex and Gender Information Value Date Recorded Sex Assigned at Not on file Legal Sex Female 4:07 AM ANTENNA INSTALLER Gender Identity Not on file Sexual Orientation Not on file Last Filed Vital Signs Vital Sign Reading Time Taken Comments Blood Pressure 136/80 08/19/2024 10:16 AM ANTENNA INSTALLER Pulse 99 08/19/2024 10:16 AM ANTENNA INSTALLER Temperature 36.8 C (98.2 F) 07/31/2024 5:00 PM CDT Respiratory Rate 14 08/19/2024 10:1 6 AM ANTENNA INSTALLER Oxygen Saturation 98% 08/19/2024 10: 16 AM ANTENNA INSTALLER Inhaled Oxygen Concentration - - Weight 58.4 kg (128 lb 12.8 oz) 024 10:16 AM ANTENNA INSTALLER Height 165.1 cm (5' 5) 08/19/2024 10:1 6 AM ANTENNA INSTALLER Body Mass Index 21.43 08/19/2024 10:16 AM ANTENNA INSTALLER Plan of Treatment Health Maintenance Due Date Last Done Comments ZOSTER VACCINE (1 of 2) 1997 DTAP/TDAP/TD VACCINES (2 - Tdap) 04/24/2022 04/24/20 12 RSV VACCINE (60+ or ) (1 - 1-dose 75+ series) 2022 COLORECTAL SCREENING 10/25/2024 10/25/2021, 10/25/2021, 11/02/2016, Additional history exists INFLUENZA VACCINE (#1) 2025 3, 07/15/2023 (Previously completed), 09/13/2021, Additional history exists COVID-19 Vaccine ( - 2024-2 6 season) 2025 12/11/2020, 12/11/2020, 11/18/2020, Additional history exists DIABETES: A1C (Auto Order) 09/11/2025 09/11/2024, OSTEOPOROSIS SCREENING 03/22/2027 2, 03/22/2022, 06/16/2019, Additional history exists PNEUMOCOCCAL VACCINE 50+ YEARS Completed 07/17/2018 , 08/21/2016 Medicare Advantage ([place]) Preventative Visit/Annual Wellness Visit Completed 09/01/2025, 08/19/2024, 05/28/2023, Additional history exists Procedures Procedure Name Priority Date/Time Associated Diagnosis Comments TSH Routine 07/30/2025 11:47 AM CDT COMPREHENSIVE METABOLIC PANEL Routine 07/30/2025 11:46 AM CDT CBC WITH DIFFERENTIAL Routine 07/30/2025 11:43 AM CDT HEMOGLOBIN A1C Routine 12/26/2023 1:13 PM CDT Age-related osteoporosis without current pathological fracture Elevated glucose COLONOSCOPY REPORT 10/25/2021 9: 26 AM ANTENNA INSTALLER XR DEXA BONE DENSITY AXIAL 1 OR MORE SITES Routine 06/16/2019 from Last 3 Months or Most Recently Relevant to Health Maintenance Results * TSH (07/30/2025 11:47 AM CDT) Blood us Abstract Provider CHEMISTRY ORDERABLES Final Res ult Performing Organization Address [facility] de Phone Number [facility] CLIA# [id number] [address] [place] [address] [phone] * COMPREHENSIVE METABOLIC PANEL (07/30/2025 11:46 AM CDT) Blood us Abstract Provider CHEMISTRY ORDERABLES Final Res ult Performing Organization Address [facility] Co de Phone Number [facility] CLIA# [id number] [address] [place] [phone] * CBC WITH DIFFERENTIAL (07/30/2025 11:43 AM CDT) Blood us Abstract Provider HEMATOLOGY ORDERABLES Final Re sult Performing Organization Address [facility] Co de Phone Number [facility] CLIA# [id number] [address] [place] [address] [phone] * HEMOGLOBIN A1C (12/26/2023 1:13 PM CDT) HEMOGLOBIN A1C 5.6 <5.7 % of total Hgb [facility] Comment: For the purpose of screening for the presence of diabetes: <5.7% Consistent with the absence of diabetes 5.7-6.4% Consistent with increased risk for diabetes (prediabetes) > or =6.5% Consistent with diabetes This assay result is consistent with a decreased risk of diabetes. Currently, no consensus exists regarding use of hemoglobin A1c for diagnosis of diabetes in children. According to [place] Diabetes Association (ADA) guidelines, hemoglobin A1c <7.0% represents optimal control in non- diabetic patients. Different metrics may apply to specific patient populations. Standards of Medical Care in Diabetes(ADA). ESTIMATED AVERAGE GLUCOSE (MG/DL) 114 mg/dL [employer] mesha Du[facility] ESTIMATED AVERAGE GLUCOSE (MMOL/L) 6.3 mmol/L [facility] Comment: This test was performed on the Akella c8000 platform. Please be advised that [email or web address] will move hemoglobin A1c testing to the Desiree platform soon. In general, direct comparison of the results from different platforms is not recommended. FASTING:NO FASTING: NO Test Performed at: [facility] [place] [address] [place] [address] [facility] Manc[facility] Blood 12/26/2023 1:13 PM CDT 12/26/2023 1:14 PM CDT Elaina THOPMSON CHEMISTRY ORDERABLES Final Result [facility] [phone] [facility] [address] [place] [address] * COLONOSCOPY REPORT (10/25/2021 9:26 AM ANTENNA INSTALLER) Narrative Procedure Note Burton Rodas MD - 10/25/2021 9:[address] [facility] Endoscopy Patient Name: Laina Christie Procedure Date: 10/25/2021 Date of : 1945 Attending MD: Burton Rodas MD Procedure: Colonoscopy Indications: Surveillance: Personal history of adenomatous polyps on last colonoscopy 2016. Providers: Burton Rodas MD Referring MD: Elaina Gomes MD Medicines: Propofol per Anesthesia Complications: No immediate complications. Procedure: Informed consent was obtained for the procedure, including moderate sedation after risks were discussed. Based on the pre-procedure assessment, including review of the patient's medical history, medications, allergies, and review of systems, the patient was deemed to be an appropriate candidate for sedation. A timeout was performed. Continuous ECG monitoring, pulse oximetry, blood pressure monitoring, and direct observation were performed. The Colonoscope was introduced through the anus and advanced to the terminal ileum, with identification of the appendiceal orifice and IC valve. The colonoscopy was performed without difficulty. The patient tolerated the procedure well. The quality of the bowel preparation was poor. The colon was copiously irrigated and suctioned and the ultimate quality of prep was adequate. Estimated Blood Loss: Estimated blood loss: none. Findings: A 10 mm polyp was found in the cecum. The polyp was sessile. The polyp was removed with a cold snare. Resection and retrieval were complete. A 3 mm polyp was found in the distal transverse colon. The polyp was sessile. The polyp was removed with a cold snare. Resection and retrieval were complete. Internal hemorrhoids were found during retroflexion. The hemorrhoids were small. Impression: - Preparation of the colon was poor. - 2 colon polyps. Resected and retrieved. - Internal hemorrhoids. Recommendation: - Await pathology results. Burton Rodas MD 10/25/2021 9:26:01 AM This report has been signed electronically. Number of Addenda: [address]; [place] [address] Burton Rodas MD GI PROCEDURE ORDERABLES Final Re sult * XR DEXA BONE DENSITY AXIAL 1 OR MORE SITES (06/16/2019) Anatomical Region Laterality Modality Other Abstract Provider DIAGNOSTIC IMAGING ORDERABLES Edited Result - Final from Last 3 Months or Most Recently Relevant to Health Maintenance Insurance [employer] PPO MCR Advance Directives For more information, please contact: [phone] * Full Code (Latest Code Status on File) Date Activated Date Inactivated Comments 10/25/2021 8:00 AM 10/25/2021 12:27 PM * Full Code Date Activated Date Inactivated Comments 11/02/2016 8:58 AM 11/02/2016 1:40 PM Care Teams Patient Service Coordinator Relationship Specialty Start Date End Date Elaina Gomes MD PCP - General Internal Medicine 06/25/14
--- OUTSIDE RECORDS SUMMARY | 2025-10-08 07:53 | XMS_ITS | Encounter Summary ---
Author Organization [facility] Healthcare Address [address] [place] [address] Care Team Providers Care Kids Activities Coach Name Role Phone Elaina Gomes MD Primary Care Provid er Manuel Hyman MD Unavailable [phone] Reason for Visit * Reason Onset Date Comments Lab Results/ Lab Error 10/06/2025 Ammonia Encounter Details Date Type Department Care Team (Late st Contact Info) Description 10/06/2025 Telephone [facility] Medical Group Neurology [address] [place] [phone] Ariella Rodriguez, KANDICE [address] [place] [id number] Lab Results/ Lab Error (Ammonia) Social History Tobacco Use Types Packs/Day Years Used Date Smoking Tobacco: Never Alcohol Use Standard Drinks/Week Comments No 0 (1 standard drink = 0.6 oz pur e alcohol) Comments Unknown Sex and Gender Information Value Date Recorded Sex Assigned at Not on file Legal Sex Female 12:49 AM NETWORK CABLE INSTALLER Gender Identity Female 04/06/2024 11:30 AM CDT Sexual Orientation Not on file documented as of this encounter Miscellaneous Notes * Telephone Encounter - Mya Wong MA - 10/06/2025 10:35 AM CST I received a called from [facility] stating that they need a new order for the Ammonia because therewas an error. As we research the chart we noticed that none of the labs that were faxed to [facility]. I called the facility to get the results faxed to our office and to also advise them that the patient need to have the Ammonia redone and where they would like to have it done. Karla walls stated that she will ask the lab in their facility if they will be able to do the Ammonia lab. ORK CABLE INSTALLER documented in this encounter Plan of Treatment Not on file documented as of this encounter Visit Diagnoses Not on filedocumented in this encounter Care Teams Kids Activities Coach Relationship Specialty Start Date End Date Elaina Gomes MD [address] [place] [address] PCP - General 05/21/17 Manuel Hyman MD [address] [place] [address] [facility] [address] [place] [address] Surgeon Vascular Surgery 11/05/22 documented as of this encounter
--- OUTSIDE RECORDS SUMMARY | 2025-10-08 07:53 | XMS_ITS | Encounter Summary ---
Author Organization [facility] Address [address] [place] [address] Care Team Providers Care Banquet Cook Name Role Phone Elaina Gomes MD Primary Care Provid er Encounter Details Date Type Department Care Team (Late st Contact Info) Description 06/12/2005 Outpatient [facility] Internal Medicine - [place] [address] [place] [address] Jas Griffith MD [address] [place] [address] Social History Tobacco Use Types Packs/Day Years Used Date Smoking Tobacco: Never Assessed Comments Unknown Sex and Gender Information Value Date Recorded Sex Assigned at Not on file Legal Sex Female 4:07 AM SCRUM PROJECT MANAGER Gender Identity Not on file Sexual Orientation Not on file documented as of this encounter Plan of Treatment Not on file documented as of this encounter Visit Diagnoses Not on filedocumented in this encounter Additional Health Concerns Infection Onset Date Last Indicated Resolved Time R/O COVID-19 07/31/2024 07/31/2024 07/31/2024 4:18 PM CDT documented as of this encounter Care Teams Banquet Cook Relationship Specialty Start Date End Date Elaina Gomes MD PCP - General Internal Medicine 06/25/14 documented as of this encounter
--- OUTSIDE RECORDS SUMMARY | 2025-10-08 07:53 | XMS_ITS | Encounter Summary ---
Author Organization [facility] Address [address] [place] [address] Care Team Providers Care Outside Machinist Helper Name Role Phone Elaina Gomes MD Primary Care Provid er Encounter Details Date Type Department Care Team (Late st Contact Info) Description 06/12/2005 Outpatient [facility] Internal Medicine - [place] [address] [place] [address] Jas Griffith MD [address] [facility] [address] [place] [address] Social History Tobacco Use Types Packs/Day Years Used Date Smoking Tobacco: Never Assessed Comments Unknown Sex and Gender Information Value Date Recorded Sex Assigned at Not on file Legal Sex Female 4:07 AM EMG TECHNICIAN Gender Identity Not on file Sexual Orientation Not on file documented as of this encounter Plan of Treatment Not on file documented as of this encounter Visit Diagnoses Not on filedocumented in this encounter Additional Health Concerns Infection Onset Date Last Indicated Resolved Time R/O COVID-19 07/31/2024 07/31/2024 07/31/2024 4:18 PM CDT documented as of this encounter Care Teams Outside Machinist Helper Relationship Specialty Start Date End Date Elaina Gomes MD PCP - General Internal Medicine 06/25/14 documented as of this encounter
--- OUTSIDE RECORDS SUMMARY | 2025-10-08 07:53 | XMS_ITS | Encounter Summary ---
Author Organization [facility] Address [address] [place] [address] Care Team Providers Care Laceworker Name Role Phone Elaina Gomes MD Primary Care Provid er Encounter Details Date Type Department Care Team (Late st Contact Info) Description 05/29/2004 Outpatient Historical [facility] Support [facility]. ([facility]) [address] [place] [address] Neto Linton MD NO ADDRESS ON FILE Social History Tobacco Use Types Packs/Day Years Used Date Smoking Tobacco: Never Assessed Comments Unknown Sex and Gender Information Value Date Recorded Sex Assigned at Not on file Legal Sex Female 4:07 AM WATERMASTER Gender Identity Not on file Sexual Orientation Not on file documented as of this encounter Plan of Treatment Not on file documented as of this encounter Visit Diagnoses Not on filedocumented in this encounter Additional Health Concerns Infection Onset Date Last Indicated Resolved Time R/O COVID-19 07/31/2024 07/31/2024 07/31/2024 4:18 PM CDT documented as of this encounter Care Teams Laceworker Relationship Specialty Start Date End Date Elaina Gomes MD PCP - General Internal Medicine 06/25/14 documented as of this encounter
--- OUTSIDE RECORDS SUMMARY | 2025-10-08 07:53 | XMS_ITS | Encounter Summary ---
Author Organization [facility] Address [address] [place] [address] Care Team Providers Care Molded Goods Inspector Trimmer Name Role Phone Elaina Gomes MD Primary Care Provid er Encounter Details Date Type Department Care Team (Late st Contact Info) Description 01/13/2007 Outpatient Historical [facility] Internal Medicine - [place] [address] [place] [address] Jas Griffith MD [address] [place] [address] Social History Tobacco Use Types Packs/Day Years Used Date Smoking Tobacco: Never Assessed Comments Unknown Sex and Gender Information Value Date Recorded Sex Assigned at Not on file Legal Sex Female 4:07 AM COOK CANDY Gender Identity Not on file Sexual Orientation Not on file documented as of this encounter Plan of Treatment Not on file documented as of this encounter Visit Diagnoses Not on filedocumented in this encounter Additional Health Concerns Infection Onset Date Last Indicated Resolved Time R/O COVID-19 07/31/2024 07/31/2024 07/31/2024 4:18 PM CDT documented as of this encounter Care Teams Molded Goods Inspector Trimmer Relationship Specialty Start Date End Date Elaina Gomes MD PCP - General Internal Medicine 06/25/14 documented as of this encounter
--- OUTSIDE RECORDS SUMMARY | 2025-10-08 07:53 | XMS_ITS | Encounter Summary ---
Author Organization [facility] Address [address] [place] [address] Care Team Providers Care Manager Pet Name Role Phone Elaina Gomes MD Primary Care Provid er Encounter Details Date Type Department Care Team (Late st Contact Info) Description 04/26/[address] [facility] Internal Medicine - [place] [address] [place] [address] Jas Griffith MD [address] [facility] [address] [place] [address] Social History Tobacco Use Types Packs/Day Years Used Date Smoking Tobacco: Never Assessed Comments Unknown Sex and Gender Information Value Date Recorded Sex Assigned at Not on file Legal Sex Female 4:07 AM SHARED SERVICES AND OUTSOURCING MANAGER Gender Identity Not on file Sexual Orientation Not on file documented as of this encounter Plan of Treatment Not on file documented as of this encounter Visit Diagnoses Not on filedocumented in this encounter Additional Health Concerns Infection Onset Date Last Indicated Resolved Time R/O COVID-19 07/31/2024 07/31/2024 07/31/2024 4:18 PM CDT documented as of this encounter Care Teams Manager Pet Relationship Specialty Start Date End Date Elaina Gomes MD PCP - General Internal Medicine 06/25/14 documented as of this encounter
--- OUTSIDE RECORDS SUMMARY | 2025-10-08 07:53 | XMS_ITS | Encounter Summary ---
Author Organization [facility] Address [address] [place] [address] Care Team Providers Care Edging Machine Catcher Name Role Phone Elaina Gomes MD Primary Care Provid er Encounter Details Date Type Department Care Team (Late st Contact Info) Description 05/03/2006 Outpatient Historical [facility] Respiratory Therapy [address] [facility] [address] 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
--- OUTSIDE RECORDS SUMMARY | 2025-10-08 07:53 | XMS_ITS | Encounter Summary ---
Author Organization [facility] Address 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 Gender Identity Not on file Sexual Orientation Not on file documented as of this encounter Last Filed Vital Signs Vital Sign Reading Time Taken Comments Blood Pressure 120/60 10/23/2004 11:00 AM LOADER DEMOLDER Pulse 74 10/23/2004 11:00 AM LOADER DEMOLDER Temperature 36.7 C (98 F) 10/23/2004 11:00 AM LOADER DEMOLDER Respiratory Rate - - Oxygen Saturation - - Inhaled Oxygen Concentration - - Weight 61.2 kg (135 lb) 10/23/2004 11:00 AM LOADER DEMOLDER Height - - Body Mass Index - - documented in this encounter Plan of Treatment Not on file documented as of this encounter Visit Diagnoses Not on filedocumented in this encounter Additional Health Concerns Infection Onset Date Last Indicated Resolved Time R/O COVID-19 07/31/202407/31/2024 07/31/2024 4:18 PM CDT documented as of this encounter Care Teams Business Insight And Analytics Manager Relationship Specialty Start Date End Date Elaina Gomse MD PCP - General Internal Medicine 06/25/14 documented as of this encounter
--- OUTSIDE RECORDS SUMMARY | 2025-10-08 07:53 | XMS_ITS | Encounter Summary ---
Author Organization [facility] Address 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
--- OUTSIDE RECORDS SUMMARY | 2025-10-08 07:53 | XMS_ITS | Encounter Summary ---
Author Organization [facility] Address 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
--- OUTSIDE RECORDS SUMMARY | 2025-10-08 07:53 | XMS_ITS | Encounter Summary ---
Author Organization [facility] Address [address] Attn: Epic Prelude ADT [place] [address] Care Team Providers Care Game Bird Farmer Name Role Phone Elaina Gomes MD Primary Care Provid er Encounter Details Date Type Department Care Team (Late st Contact Info) Description 04/04/1989 Outpatient Historical Hector Machuca MD NO ADDRESS ON FILE Social History Tobacco Use Types Packs/Day Years Used Date Smoking Tobacco: Never Assessed Comments Unknown Sex and Gender Information Value Date Recorded Sex Assigned at Not on file 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
--- OUTSIDE RECORDS SUMMARY | 2025-10-08 07:53 | XMS_ITS | Patient Health Record ---
Author Organization [facility] Address [address] [place], [place] [address] Care Team Providers Care Loading Machine Tool Setter Name Role Phone ROSARIO TORO Unavailable [phone] Elaina Gomes Unavailable Unavailable Allergies No Known Allergies Reason For Referral No Information Medications Medication SIG (Take, Route, Frequency, Duration) Notes Start Date End Date Status Synthroid 25 MCG Tablet 1 tablet in the morning on an empty stomach Orally Once a day Active Omeprazole 10 MG Capsule Delayed Release 1 capsule 30 minutes before morning meal Orally Once a day Active PreserVision AREDS - Capsule as directed Orally Active Zinc 30 MG Tablet 1 tablet Orally Once a day Active Carbidopa-Levodopa 10-100 MG Tablet 1 tablet Orally Three times a day Active Memantine HCl 10 MG Tablet 1 tablet Oral ly Once a day Active Escitalopram Oxalate 5 MG Tablet 1 tablet Orally Once a day Active Immunizations Vaccine Route Administration Date Status Comme nts Pneumococcal conjugate PCV 13 Unknown 08/24/2024 Refuse d Influenza, high dose seasonal Unknown 07/19/2023 Admini stered Influenza, high dose seasonal Unknown 08/24/2024 Refuse d Social History Tobacco Use: Social History Observation Description Date Details (start date - stop date) Unknown if ever smoked NA - NA Social History Tobacco Use: Social Info Question Answer Notes Tobacco Control (Standard) Tobacco use: Unknown if william r smoked Plan Of Treatment No Information Insurance Providers Payer Name Payer Address Payer Phone Subscriber Number Group Number Insured Name Patient Relationship to Insured Coverage Start Date Coverage End Date [employer] [address] [place] [address] [phone] [id number] Leigh Self - patient is the insured Medical (General) History Medical History History ICD Code acid reflux Leg/Feet cramps Arthritis Thyroid Disease varicose veins
--- OUTSIDE RECORDS SUMMARY | 2025-10-08 07:53 | XMS_ITS | Encounter Summary ---
Author Organization [facility] Address 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 Gender Identity Not on file Sexual Orientation Not on file documented as of this encounter Last Filed Vital Signs Vital Sign Reading Time Taken Comments Blood Pressure 142/84 06/12/2004 9:45 AM CDT Pulse - - Temperature - - Respiratory Rate - - Oxygen Saturation - - Inhaled Oxygen Concentration - - Weight 61.7 kg (136 lb) 06/12/2004 9:45 AM CDT Height - - Body Mass Index - - documented in this encounter Plan of Treatment Not on file documented as of this encounter Visit Diagnoses Not on filedocumented in this encounter Additional Health Concerns Infection Onset Date Last Indicated Resolved Time R/O COVID-19 07/31/2024 07/31/2024 07/31/2024 4:18 PM CDT documented as of this encounter Care Teams Machining Engineer Relationship Specialty Start Date End Date Elaina Gomes MD PCP - General Internal Medicine 06/25/14 documented as of this encounter
--- OUTSIDE RECORDS SUMMARY | 2025-10-08 07:53 | XMS_ITS | Encounter Summary ---
Author Organization [facility] Address [address] [place] [address] Care Team Providers Care Quality Control Analyst Name Role Phone Elaina Gomes MD Primary Care Provid er Encounter Details Date Type Department Care Team (Late st Contact Info) Description 01/18/2005 Outpatient Historical [facility] Internal Medicine - [place] [address] [place] [address] Jas Griffith MD [address] [facility] [address] [place] [address] Social History Tobacco Use Types Packs/Day Years Used Date Smoking Tobacco: Never Assessed Comments Unknown Sex and Gender Information Value Date Recorded Sex Assigned at Not on file 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 Female 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 Gender Identity Not on file Sexual Orientation Not on file documented as of this encounter Last Filed Vital Signs Vital Sign Reading Time Taken Comments Blood Pressure 120/80 01/18/2005 1:40 PM CDT Pulse - - Temperature 36.7 C (98 F) 01/18/2005 1:40 PM CDT Respiratory Rate - - Oxygen Saturation - - Inhaled Oxygen Concentration - - Weight 62.7 kg (138 lb 5 oz) 01/18/2005 1:40 PM CDT Height - - Body Mass Index - - documented in this encounter Plan of Treatment Not on file documented as of this encounter Visit Diagnoses Not on filedocumented in this encounter Additional Health Concerns Infection Onset Date Last Indicated Resolved Time R/O COVID-19 07/31/2024 07/31/2024 07/31/2024 4:18 PM CDT documented as of this encounter Care Teams Quality Control Analyst Relationship Specialty Start Date End Date Elaina Gomes MD PCP - General Internal Medicine 06/25/14 documented as of this encounter
--- OUTSIDE RECORDS SUMMARY | 2025-10-08 07:53 | XMS_ITS | Encounter Summary ---
Author Organization [facility] Address 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
--- OUTSIDE RECORDS SUMMARY | 2025-10-08 07:53 | XMS_ITS | Encounter Summary ---
Author Organization [email or web address] Address [address] [place] [address] Care Team Providers Care Puffer Tender Name Role Phone Elaina Gomes MD Primary Care Provid er Encounter Details Date Type Department Care Team (Late st Contact Info) Description 01/22/2007 Outpatient Historical [facility] ([facility]) [address] 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
--- OUTSIDE RECORDS SUMMARY | 2025-10-08 07:53 | XMS_ITS | Encounter Summary ---
Author Organization [facility] Address [address] [place] [address] Care Team Providers Care Event Host Name Role Phone Elaina Gomes MD Primary Care Provid er Encounter Details Date Type Department Care Team (Late st Contact Info) Description 02/13/1999 Outpatient Historical [place] [address] 

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
--- OUTSIDE RECORDS SUMMARY | 2025-10-08 07:53 | XMS_ITS | Encounter Summary ---
Author Organization [facility] Address [address] [place] [address] Care Team Providers Care Web User Experience Strategist Name Role Phone Elaina Gomes MD Primary Care Provid er Encounter Details Date Type Department Care Team (Late st Contact Info) Description 01/13/2007 Outpatient Historical [facility] Internal Medicine - [place] [address] [place] [address] Jas Griffith MD [address] [facility] [address] [place] [address] Social History Tobacco Use Types Packs/Day Years Used Date Smoking Tobacco: Never Assessed Comments Unknown Sex and Gender Information Value Date Recorded Sex Assigned at Not on file Legal Sex Female 4: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
--- OUTSIDE RECORDS SUMMARY | 2025-10-08 07:53 | XMS_ITS | Encounter Summary ---
Author Organization [employer] Address [address] [place] [address] Care Team Providers Care Voice Network Administrator Name Role Phone Elaina Gomes MD Primary Care Provid er Encounter Details Date Type Department Care Team (Late st Contact Info) Description 03/06/2006 Outpatient Historical [facility] [place] [facility] ([facility]) [address] 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
--- OUTSIDE RECORDS SUMMARY | 2025-10-08 07:53 | XMS_ITS | Encounter Summary ---
Author Organization [facility] Address [address] [place] [address] Care Team Providers Care Legal Job Titles Name Role Phone Elaina Gomes MD Primary Care Provid er Encounter Details Date Type Department Care Team (Late st Contact Info) Description 10/12/2005 Outpatient Historical [facility] Internal Medicine - [place] [address] [place] [address] Jas Griffith MD [address] [facility] [address] [place] [address] Social History Tobacco Use Types Packs/Day Years Used Date Smoking Tobacco: Never Assessed Comments Unknown Sex and Gender Information Value Date Recorded Sex Assigned at Not on file Legal Sex Female 4:07 AM RECLAMATION ENGINEER Gender Identity Not on file Sexual Orientation Not on file documented as of this encounter Last Filed Vital Signs Vital Sign Reading Time Taken Comments Blood Pressure 160/90 10/12/2005 10:15 AM RECLAMATION ENGINEER Pulse 80 10/12/2005 10:15 AM RECLAMATION ENGINEER Temperature - - Respiratory Rate - - Oxygen Saturation - - Inhaled Oxygen Concentration - - Weight 60.8 kg (134 lb) 10/12/2005 10:15 AM RECLAMATION ENGINEER Height - - Body Mass Index - - documented in this encounter Plan of Treatment Not on file documented as of this encounter Visit Diagnoses Not on filedocumented in this encounter Additional Health Concerns Infection Onset Date Last Indicated Resolved Time R/O COVID-19 07/31/2024 07/31/2024 07/31/2024 4:18 PM CDT documented as of this encounter Care Teams Legal Job Titles Relationship Specialty Start Date End Date Elaina Gomes MD PCP - General Internal Medicine 06/25/14 documented as of this encounter
--- OUTSIDE RECORDS SUMMARY | 2025-10-08 07:53 | XMS_ITS | Encounter Summary ---
Author Organization [facility] Address [address] [place] [address] Care Team Providers Care Chicken Cleaner Name Role Phone Elaina Gomes MD Primary Care Provid er Encounter Details Date Type Department Care Team (Late st Contact Info) Description 11/07/2004 Outpatient Historical [facility] Internal Medicine - 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 Gender Identity Not on file Sexual Orientation Not on file documented as of this encounter Last Filed Vital Signs Vital Sign Reading Time Taken Comments Blood Pressure 130/70 11/07/2004 10:00 AM EMBOSSING MACHINE OPERATOR HELPER Pulse 76 11/07/2004 10:00 AM EMBOSSING MACHINE OPERATOR HELPER Temperature - - Respiratory Rate - - Oxygen Saturation - - Inhaled Oxygen Concentration - - Weight 62.6 kg (138 lb) 11/07/2004 10:00 AM EMBOSSING MACHINE OPERATOR HELPER Height - - Body Mass Index - - documented in this encounter Plan of Treatment Not on file documented as of this encounter Visit Diagnoses Not on filedocumented in this encounter Additional Health Concerns Infection Onset Date Last Indicated Resolved Time R/O COVID-19 07/31/2024 07/31/2024 07/31/2024 4:18 PM CDT documented as of this encounter Care Teams Chicken Cleaner Relationship Specialty Start Date End Date Elaina Gomes MD PCP - General Internal Medicine 06/25/14 documented as of this encounter
--- OUTSIDE RECORDS SUMMARY | 2025-10-08 07:53 | XMS_ITS | Encounter Summary ---
Author Organization [facility] Address [address] [place] [address] Care Team Providers Care Electrifier Operator Name Role Phone Elaina Gomes MD Primary Care Provid er Encounter Details Date Type Department Care Team (Latest Contact Info) Description 03/29/2008 Outpatient Historical [facility] Voss, Megan Torres, ANP NO ADDRESS ON FILE Other and Unspecified Hyperlipidemia Social History Tobacco Use Types Packs/Day Years Used Date Smoking Tobacco: Never Alcohol Use Standard Drinks/Week Comments No 0 (1 standard drink = 0.6 oz pur e alcohol) Comments No Sex and Gender Information Value Date Recorded Sex Assigned at Not on file 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
--- OUTSIDE RECORDS SUMMARY | 2025-10-08 07:53 | XMS_ITS | Encounter Summary ---
Author Organization [facility] Address [address] [place] [address] Care Team Providers Care Car Repairer Helper Name Role Phone Elaina Gomes MD Primary Care Provid er Encounter Details Date Type Department Care Team (Late st Contact Info) Description 03/26/2006 Outpatient Historical [facility] [place] Internal Medicine - [place] [address] [place] [address] Jas Griffith MD [address] [facility] [address] [place] [address] Social History Tobacco Use Types Packs/Day Years Used Date Smoking Tobacco: Never Assessed Comments Unknown Sex and Gender Information Value Date Recorded Sex Assigned at Not on file 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 Gender Identity Not on file Sexual Orientation Not on file documented as of this encounter Last Filed Vital Signs Vital Sign Reading Time Taken Comments Blood Pressure 110/60 03/26/2006 10:45 AM CDT Pulse 60 03/26/2006 10:45 AM CDT Temperature - - Respiratory Rate - - Oxygen Saturation - - Inhaled Oxygen Concentration - - Weight 59 kg (130 lb) 03/26/2006 10:45 AM CDT Height - - Body Mass Index - - documented in this encounter Plan of Treatment Not on file documented as of this encounter Visit Diagnoses Not on filedocumented in this encounter Additional Health Concerns Infection Onset Date Last Indicated Resolved Time R/O COVID-19 07/31/2024 07/31/2024 07/31/2024 4:18 PM CDT documented as of this encounter Care Teams Car Repairer Helper Relationship Specialty Start Date End Date Elaina Gomes MD PCP - General Internal Medicine 06/25/14 documented as of this encounter
--- OUTSIDE RECORDS SUMMARY | 2025-10-08 07:53 | XMS_ITS | Encounter Summary ---
Author Organization [facility] Address 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 Sex 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
--- OUTSIDE RECORDS SUMMARY | 2025-10-08 07:53 | XMS_ITS | Encounter Summary ---
Author Organization [facility] Address [address] [place] [address] Care Team Providers Care Deputy Chief Magistrate Name Role Phone Elaina Gomes MD Primary Care Provid er Encounter Details Date Type Department Care Team (Late st Contact Info) Description 01/13/2007 Outpatient Historical [facility] Internal Medicine - [place] [address] [place] [address] Jas Griffith MD [address] [facility] [address] [place] [address] Social History Tobacco Use Types Packs/Day Years Used Date Smoking Tobacco: Never Assessed Comments Unknown Sex and Gender Information Value Date Recorded Sex Assigned at Not on file Legal Sex Female 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
--- OUTSIDE RECORDS SUMMARY | 2025-10-08 07:53 | XMS_ITS | Encounter Summary ---
Author Organization [facility] Address 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
[2025-10-08 08:49] VITALS: BP 111/65; PULSE 87; RESP 14; O2SAT 97
== END 2025-10-08 09:00 ==
PROVIDERS: Emergency Provider Student in an Organized Health Care Education/Training Program; PCP Urology
DX: S19.9XXA Unspecified injury of neck, initial encounter (principal); M79.601 Pain in right arm; M25.512 Pain in left shoulder; M48.8X2 Other specified spondylopathies, cervical region; G20.A1 Parkinson's disease without dyskinesia, without mention of fluctuations; F03.90 Unspecified dementia, unspecified severity, without behavioral disturbance, psychotic disturbance, mood disturbance, and anxiety; E55.9 Vitamin D deficiency, unspecified; E61.1 Iron deficiency; E07.9 Disorder of thyroid, unspecified; M81.0 Age-related osteoporosis without current pathological fracture; M85.80 Other specified disorders of bone density and structure, unspecified site; F41.9 Anxiety disorder, unspecified; W18.30XA Fall on same level, unspecified, initial encounter
CPT/HCPCS: 70450; 72125; 73000; 73030; 73060; 73070; 99284; A9270